=== PATIENT | female | born 1965 | race Caucasian/White ===

== ENCOUNTER 2021-10-25 12:46 | Inpatient (IN) ==
[2021-10-25] MEDS ORDERED: Azithromycin 500 mg/250 ml NS 500 MG/250 ML BAG IVPB ONE (13:19)
[2021-10-25] MEDS ORDERED: cefTRIAXone 1 gm/50 mL NS BAG 1 GM/50 ML BAG IV ONE (13:19)
[2021-10-25 14:00] LABS: ABS Lymphocytes 0.7 10^3/ul (1.0-4.8); ABS Monocytes 0.3 10^3/ul (0-0.8); ABS Neutrophils 3.4 10^3/ul (1.5-7.7); Eosinophil % 0.1 %; Hematocrit 35 % (35-47); Hemoglobin 11.4 g/dL (12.0-16.0); Lymphocyte % 16.6 %; Mean Corpuscular HGB Conc 33 g/dL (31-36); Mean Corpuscular Hemoglobin 26 pg (27-31); Mean Corpuscular Volume 79 fL (80-97); Mean Platelet Volume 6.8 fL (7.4-10.4); Platelet Count 207 10^3/uL (150-450); Red Cell Distribution Width 16 % (10-15); White Blood Count 4.4 10^3/uL (3.5-10.8)
[2021-10-25 14:09] LABS: Activated Partial Thrombo Time 30.9 seconds (26.0-38.0); INR 1.13 (0.86-1.15)
[2021-10-25 14:16] LABS: Albumin 3.3 g/dL (3.2-5.2); Albumin/Globulin Ratio 0.8 (1-3); Calcium 8.3 mg/dL (8.6-10.3); Globulin 3.9 g/dL (2-4); Potassium 3.8 mmol/L (3.5-5.0); Total Bilirubin 0.4 mg/dL (0.2-1.0); Total Protein 7.2 g/dL (6.4-8.9); eGFR CKD-EPI 61.7 (>60)
[2021-10-25 14:23] LABS: HCG Pregnancy 0.84 mIU/mL
[2021-10-25 14:36] LABS: TSH Ultra Thyroid Stim Horm 2.51 mcIU/mL (0.34-5.60)
[2021-10-25] MEDS ORDERED: Dexamethasone IV 4 MG/ML VIAL 1 ml VIAL IV SLOW PU ONE (14:55)
[2021-10-25 14:56] LABS: Urine Appearance Cloudy; Urine Bilirubin Negative (Negative); Urine Blood 3+ (Negative); Urine Color Yellow; Urine Glucose Negative (Negative); Urine Ketones Negative (Negative); Urine Nitrite Negative (Negative); Urine Protein 2+(100 mg/dL) (Negative); Urine Specific Gravity 1.016 (1.002-1.030); Urine Urobilinogen Negative (Negative)
[2021-10-25 15:04] LABS: Urine Bacteria 1+ (Absent); Urine Red Blood Cell 3+(>10/hpf) (Absent); Urine Squamous Epithelial Cell Present (Absent); Urine White Blood Cell Trace(0-5/hpf) (Absent)
[2021-10-25] MEDS ORDERED: Enoxaparin 40 MG/0.4 ML SYR SUBCUT SCH (16:00)
[2021-10-25] MEDS ORDERED: Remdesivir 100 mg Vial 200 MG in NS 0.9% 250 ml 210 ML IV ONE (16:00)
[2021-10-25] MEDS ORDERED: Ondansetron 4 mg VIAL 2 MG/ML 2 ml VIAL IV PRN (16:19)
[2021-10-25] MEDS ORDERED: Ondansetron 4 mg VIAL 2 MG/ML 2 ml VIAL IV ONE (16:19)
[2021-10-25 16:26] LABS: Ferritin 168.2 ng/mL (11-307)
[2021-10-25 16:30] LABS: Folate 13.27 ng/mL (5.90-24.80)
[2021-10-25] MEDS: guaiFENesin 100 mg/5 ml LIQ unit dose cup PO PRN (18:01)
[2021-10-25 21:01] LABS: Hematocrit 33 % (35-47); Hemoglobin 10.8 g/dL (12.0-16.0)
[2021-10-26 07:59] LABS: INR 1.14 (0.86-1.15)
[2021-10-26 08:15] LABS: Albumin 3.1 g/dL (3.2-5.2); Albumin/Globulin Ratio 0.8 (1-3); C Reactive Protein 128.88 mg/L (<8.01); Calcium 8.2 mg/dL (8.6-10.3); Globulin 3.8 g/dL (2-4); Potassium 4.4 mmol/L (3.5-5.0); Total Bilirubin 0.3 mg/dL (0.2-1.0); Total Protein 6.9 g/dL (6.4-8.9)
[2021-10-26 08:26] LABS: ABS Lymphocytes 0.7 10^3/ul (1.0-4.8); ABS Monocytes 0.3 10^3/ul (0-0.8); ABS Neutrophils 3.1 10^3/ul (1.5-7.7); Hematocrit 34 % (35-47); Hemoglobin 11.1 g/dL (12.0-16.0); Lymphocyte % 15.8 %; Mean Corpuscular HGB Conc 32 g/dL (31-36); Mean Corpuscular Hemoglobin 26 pg (27-31); Mean Corpuscular Volume 80 fL (80-97); Mean Platelet Volume 7.1 fL (7.4-10.4); Nucleated Red Blood Cells % 0.1; Platelet Count 220 10^3/uL (150-450); Red Cell Distribution Width 17 % (10-15); White Blood Count 4.2 10^3/uL (3.5-10.8)
[2021-10-26] MEDS: guaiFENesin 100 mg/5 ml LIQ unit dose cup PO PRN (08:26)
[2021-10-26] MEDS ORDERED: Cholecalciferol (VIT D3) 1,000 unit TAB PO SCH (09:00)
[2021-10-26] MEDS: SPIRIVA Respimat (tiotropium) 2.5 mcg/inh Inhaler INH SCH ×2 (10:56→15:06)
[2021-10-26] MEDS: Albuterol HFA INHALER 8 gm MDI INH PRN (15:06)
[2021-10-26] MEDS: guaiFENesin/CODIENE 100mg/10mg 5 ML UDC PO PRN ×2 (17:07→20:23)
[2021-10-26] MEDS: Remdesivir 100 mg Vial 100 MG in NS 0.9% 250 ml 230 ML IV SCH (20:28)
[2021-10-27] MEDS: guaiFENesin/CODIENE 100mg/10mg 5 ML UDC PO PRN ×4 (05:24→21:16)
[2021-10-27] MEDS: Albuterol HFA INHALER 8 gm MDI INH PRN (05:26)
[2021-10-27 06:19] LABS: PCO2 Arterial 52 mmHg (35-45)
[2021-10-27 06:21] LABS: PO2 Arterial 55 mmHg (80-100)
[2021-10-27] MEDS: SPIRIVA Respimat (tiotropium) 2.5 mcg/inh Inhaler INH SCH (07:04)
[2021-10-27 11:58] LABS: ABS Lymphocytes 0.6 10^3/ul (1.0-4.8); ABS Monocytes 0.4 10^3/ul (0-0.8); ABS Neutrophils 5.5 10^3/ul (1.5-7.7); Hematocrit 33 % (35-47); Hemoglobin 10.9 g/dL (12.0-16.0); Lymphocyte % 9.5 %; Mean Corpuscular HGB Conc 33 g/dL (31-36); Mean Corpuscular Hemoglobin 26 pg (27-31); Mean Corpuscular Volume 79 fL (80-97); Mean Platelet Volume 6.7 fL (7.4-10.4); Platelet Count 227 10^3/uL (150-450); Red Blood Count 4.19 10^6 /uL (3.70-4.87); Red Cell Distribution Width 16 % (10-15); White Blood Count 6.6 10^3/uL (3.5-10.8)
[2021-10-27 12:08] LABS: INR 1.13 (0.86-1.15)
[2021-10-27 12:16] LABS: Albumin 3.1 g/dL (3.2-5.2); Albumin/Globulin Ratio 0.9 (1-3); Calcium 8.5 mg/dL (8.6-10.3); Globulin 3.6 g/dL (2-4); Potassium 4.2 mmol/L (3.5-5.0); Total Bilirubin 0.3 mg/dL (0.2-1.0); Total Protein 6.7 g/dL (6.4-8.9)
[2021-10-27] MEDS: cefTRIAXone 1 gm/50 mL NS BAG 1 GM/50 ML BAG IVPB SCH (13:46)
[2021-10-27] MEDS: CMCS: Baricitinib 2 MG TAB (NF) PO SCH (13:53)
[2021-10-27 13:54] LABS: Chlamydia trachomatis NAA Negative (Negative); Neisseria gonorrhoeae (GC) NAA Negative (Negative)
[2021-10-27] MEDS: Azithromycin 500 mg/250 ml NS 500 MG/250 ML BAG IVPB SCH (15:20)
[2021-10-27] MEDS: Albuterol HFA INHALER 8 gm MDI INH SCH ×2 (15:43→21:38)
[2021-10-27] MEDS ORDERED: Lorazepam PYXIS KEY PRN (16:07)
[2021-10-27] MEDS ORDERED: Lorazepam PYXIS KEY ONE (16:08)
[2021-10-27] MEDS ORDERED: LORazepam 2 mg VIAL 1 ml ONE (16:08)
[2021-10-27] MEDS: LORazepam 2 mg VIAL 1 ml IV PUSH PRN (16:10)
[2021-10-27] MEDS ORDERED: Furosemide 40 mg/4 ml IV VIAL IV SLOW PU ONE (16:32)
[2021-10-27] MEDS: methylPREDNISolone SOD 40 mg/ml 1 ml VIAL IV SCH (17:18)
[2021-10-27 18:53] LABS: Urine Appearance Clear; Urine Bilirubin Negative (Negative); Urine Blood Negative (Negative); Urine Color Yellow; Urine Glucose Negative (Negative); Urine Ketones Negative (Negative); Urine Nitrite Negative (Negative); Urine Protein Negative (Negative); Urine Specific Gravity 1.015 (1.002-1.030); Urine Urobilinogen Negative (Negative)
[2021-10-27] MEDS: Remdesivir 100 mg Vial 100 MG in NS 0.9% 250 ml 230 ML IV SCH (20:19)
[2021-10-27] MEDS: LORazepam 2 mg VIAL 1 ml IV PUSH SCH (20:57)
[2021-10-27 23:13] LABS: Hematocrit 33 % (35-47); Hemoglobin 10.6 g/dL (12.0-16.0)
[2021-10-28] MEDS: Albuterol HFA INHALER 8 gm MDI INH SCH ×7 (00:43→23:19)
[2021-10-28] MEDS: methylPREDNISolone SOD 40 mg/ml 1 ml VIAL IV SCH ×3 (02:09→17:54)
[2021-10-28] MEDS: LORazepam 2 mg VIAL 1 ml IV PUSH PRN ×3 (02:19→20:08)
[2021-10-28] MEDS: guaiFENesin/CODIENE 100mg/10mg 5 ML UDC PO PRN ×3 (02:44→20:08)
[2021-10-28 03:51] LABS: PCO2 Arterial 47 mmHg (35-45); PO2 Arterial 170 mmHg (80-100)
[2021-10-28 04:20] LABS: ABS Monocytes 0.3 10^3/ul (0-0.8); ABS Neutrophils 2.6 10^3/ul (1.5-7.7); Hematocrit 31 % (35-47); Hemoglobin 10.4 g/dL (12.0-16.0); Lymphocyte % 24.7 %; Mean Corpuscular HGB Conc 33 g/dL (31-36); Mean Corpuscular Hemoglobin 26 pg (27-31); Mean Corpuscular Volume 79 fL (80-97); Mean Platelet Volume 6.9 fL (7.4-10.4); Nucleated Red Blood Cells % 0.1; Platelet Count 264 10^3/uL (150-450); Red Blood Count 3.95 10^6 /uL (3.70-4.87); Red Cell Distribution Width 16 % (10-15); White Blood Count 3.9 10^3/uL (3.5-10.8)
[2021-10-28 04:26] LABS: INR 1.16 (0.86-1.15)
[2021-10-28 04:36] LABS: Albumin/Globulin Ratio 0.8 (1-3); Calcium 8.3 mg/dL (8.6-10.3); Globulin 3.7 g/dL (2-4); Potassium 4.5 mmol/L (3.5-5.0); Total Bilirubin 0.3 mg/dL (0.2-1.0); Total Protein 6.7 g/dL (6.4-8.9)
[2021-10-28] MEDS: SPIRIVA Respimat (tiotropium) 2.5 mcg/inh Inhaler INH SCH ×2 (08:10→11:21)
[2021-10-28] MEDS: LORazepam 2 mg VIAL 1 ml IV PUSH SCH (08:19)
[2021-10-28 08:34] LABS: Magnesium 2.3 mg/dL (1.9-2.7); Phosphorus 4.1 mg/dL (2.5-5.0)
[2021-10-28] MEDS: cefTRIAXone 1 gm/50 mL NS BAG 1 GM/50 ML BAG IVPB SCH (11:03)
[2021-10-28] MEDS: Albuterol/Ipratropium NEB.SOL (2.5/0.5 MG) 3 ML NEB.SOLN INH PRN (11:24)
[2021-10-28] MEDS ORDERED: Morphine 2 MG/ML SYRINGE ONE (11:25)
[2021-10-28] MEDS: Azithromycin 500 mg/250 ml NS 500 MG/250 ML BAG IVPB SCH (11:57)
[2021-10-28] MEDS: CMCS: Baricitinib 2 MG TAB (NF) PO SCH (12:00)
[2021-10-28] MEDS ORDERED: Morphine 2 MG/ML SYRINGE IV ONE (12:46)
[2021-10-28] MEDS ORDERED: Morphine 2 MG/ML SYRINGE IV PRN (12:46)
[2021-10-28 16:16] LABS: % Iron Saturation 5 % (14 - 50); Total Iron Binding Capacity 315 mcg/dL (250 - 400)
[2021-10-28] MEDS ORDERED: LORazepam 2 mg VIAL 1 ml IV PUSH PRN (19:57)
[2021-10-28] MEDS: hydrALAZINE 20 mg/ml 1 ML Vial IV IV SLOW PU PRN (20:19)
[2021-10-28] MEDS: Remdesivir 100 mg Vial 100 MG in NS 0.9% 250 ml 230 ML IV SCH (20:26)
[2021-10-28] MEDS ORDERED: Furosemide 40 mg/4 ml IV VIAL IV SLOW PU ONE (20:40)
[2021-10-29] MEDS: methylPREDNISolone SOD 40 mg/ml 1 ml VIAL IV SCH ×3 (00:15→20:47)
[2021-10-29] MEDS: Albuterol HFA INHALER 8 gm MDI INH SCH ×6 (03:11→23:08)
[2021-10-29] MEDS: hydrALAZINE 20 mg/ml 1 ML Vial IV IV SLOW PU PRN (03:36)
[2021-10-29] MEDS: LORazepam 2 mg VIAL 1 ml IV PUSH PRN ×3 (03:45→20:48)
[2021-10-29 04:26] LABS: ABS Lymphocytes 0.9 10^3/ul (1.0-4.8); ABS Monocytes 0.4 10^3/ul (0-0.8); ABS Neutrophils 4.5 10^3/ul (1.5-7.7); Hematocrit 34 % (35-47); Lymphocyte % 15.6 %; Mean Corpuscular HGB Conc 33 g/dL (31-36); Mean Corpuscular Hemoglobin 26 pg (27-31); Mean Corpuscular Volume 79 fL (80-97); Mean Platelet Volume 6.4 fL (7.4-10.4); Platelet Count 250 10^3/uL (150-450); Red Blood Count 4.28 10^6 /uL (3.70-4.87); Red Cell Distribution Width 16 % (10-15); White Blood Count 5.8 10^3/uL (3.5-10.8)
[2021-10-29 04:30] LABS: INR 1.16 (0.86-1.15)
[2021-10-29 04:42] LABS: Albumin 3.1 g/dL (3.2-5.2); Albumin/Globulin Ratio 0.8 (1-3); Calcium 8.6 mg/dL (8.6-10.3); Globulin 3.7 g/dL (2-4); Potassium 4.4 mmol/L (3.5-5.0); Total Bilirubin 0.3 mg/dL (0.2-1.0); Total Protein 6.8 g/dL (6.4-8.9); eGFR CKD-EPI 87.5 (>60)
[2021-10-29] MEDS: SPIRIVA Respimat (tiotropium) 2.5 mcg/inh Inhaler INH SCH (07:51)
[2021-10-29] MEDS: cefTRIAXone 1 gm/50 mL NS BAG 1 GM/50 ML BAG IVPB SCH (12:41)
[2021-10-29] MEDS: Azithromycin 500 mg/250 ml NS 500 MG/250 ML BAG IVPB SCH (12:41)
[2021-10-29] MEDS: CMCS: Baricitinib 2 MG TAB (NF) PO SCH (12:42)
[2021-10-29] MEDS ORDERED: Furosemide 40 mg/4 ml IV VIAL IV SLOW PU ONE (15:27)
[2021-10-29] MEDS: Remdesivir 100 mg Vial 100 MG in NS 0.9% 250 ml 230 ML IV SCH (21:58)
[2021-10-30] MEDS: Albuterol/Ipratropium NEB.SOL (2.5/0.5 MG) 3 ML NEB.SOLN INH PRN ×2 (02:58→18:10)
[2021-10-30] MEDS: Albuterol HFA INHALER 8 gm MDI INH SCH ×2 (02:59→10:35)
[2021-10-30] MEDS: hydrALAZINE 20 mg/ml 1 ML Vial IV IV SLOW PU PRN (03:09)
[2021-10-30 04:37] LABS: ABS Lymphocytes 0.9 10^3/ul (1.0-4.8); ABS Monocytes 0.5 10^3/ul (0-0.8); ABS Neutrophils 5.8 10^3/ul (1.5-7.7); Eosinophil % 0.1 %; Hematocrit 35 % (35-47); Hemoglobin 11.2 g/dL (12.0-16.0); Lymphocyte % 12.1 %; Mean Corpuscular HGB Conc 32 g/dL (31-36); Mean Corpuscular Hemoglobin 26 pg (27-31); Mean Corpuscular Volume 79 fL (80-97); Mean Platelet Volume 6.5 fL (7.4-10.4); Platelet Count 272 10^3/uL (150-450); Red Blood Count 4.35 10^6 /uL (3.70-4.87); Red Cell Distribution Width 16 % (10-15); White Blood Count 7.2 10^3/uL (3.5-10.8)
[2021-10-30 04:44] LABS: INR 1.16 (0.86-1.15)
[2021-10-30 05:04] LABS: Albumin 3.2 g/dL (3.2-5.2); Albumin/Globulin Ratio 0.8 (1-3); Calcium 8.8 mg/dL (8.6-10.3); Globulin 3.8 g/dL (2-4); Potassium 4.1 mmol/L (3.5-5.0); Total Bilirubin 0.4 mg/dL (0.2-1.0); eGFR CKD-EPI 84.9 (>60)
[2021-10-30] MEDS: methylPREDNISolone SOD 40 mg/ml 1 ml VIAL IV SCH ×2 (09:22→19:54)
[2021-10-30] MEDS: LORazepam 2 mg VIAL 1 ml IV PUSH PRN ×3 (09:47→17:46)
[2021-10-30] MEDS: guaiFENesin/CODIENE 100mg/10mg 5 ML UDC PO PRN (10:18)
[2021-10-30] MEDS: SPIRIVA Respimat (tiotropium) 2.5 mcg/inh Inhaler INH SCH (10:35)
[2021-10-30] MEDS: cefTRIAXone 1 gm/50 mL NS BAG 1 GM/50 ML BAG IVPB SCH (11:30)
[2021-10-30] MEDS: Azithromycin 500 mg/250 ml NS 500 MG/250 ML BAG IVPB SCH (12:35)
[2021-10-30] MEDS: CMCS: Baricitinib 2 MG TAB (NF) PO SCH (12:54)
[2021-10-31 04:07] LABS: ABS Lymphocytes 0.7 10^3/ul (1.0-4.8); ABS Monocytes 0.5 10^3/ul (0-0.8); ABS Neutrophils 8.2 10^3/ul (1.5-7.7); Eosinophil % 0.1 %; Hematocrit 34 % (35-47); Hemoglobin 10.7 g/dL (12.0-16.0); Lymphocyte % 7.8 %; Mean Corpuscular HGB Conc 32 g/dL (31-36); Mean Corpuscular Hemoglobin 25 pg (27-31); Mean Corpuscular Volume 79 fL (80-97); Mean Platelet Volume 6.4 fL (7.4-10.4); Platelet Count 232 10^3/uL (150-450); Red Blood Count 4.26 10^6 /uL (3.70-4.87); Red Cell Distribution Width 16 % (10-15); White Blood Count 9.5 10^3/uL (3.5-10.8)
[2021-10-31 04:23] LABS: Calcium 8.8 mg/dL (8.6-10.3); Magnesium 2.6 mg/dL (1.9-2.7); Phosphorus 3.4 mg/dL (2.5-5.0); Potassium 4.4 mmol/L (3.5-5.0); eGFR CKD-EPI 102.1 (>60)
[2021-10-31] MEDS ORDERED: methylPREDNISolone SOD 40 mg/ml 1 ml VIAL IV SCH (09:00)
[2021-10-31] MEDS: LORazepam 2 mg VIAL 1 ml IV PUSH PRN ×2 (10:08→19:00)
[2021-10-31] MEDS: cefTRIAXone 1 gm/50 mL NS BAG 1 GM/50 ML BAG IVPB SCH (12:23)
[2021-10-31] MEDS: CMCS: Baricitinib 2 MG TAB (NF) PO SCH (12:23)
[2021-10-31] MEDS: Heparin 5000 UNITS/ML 1 mL VIAL SUBCUT SCH (21:53)
[2021-11-01] MEDS: LORazepam 2 mg VIAL 1 ml IV PUSH PRN ×2 (05:33→16:26)
[2021-11-01 08:28] LABS: Troponin I 0.05 ng/mL (<0.03)
[2021-11-01] MEDS: Heparin 5000 UNITS/ML 1 mL VIAL SUBCUT SCH ×2 (09:42→21:35)
[2021-11-01] MEDS: CMCS: Baricitinib 2 MG TAB (NF) PO SCH (12:02)
[2021-11-01 12:36] LABS: Troponin I 0.04 ng/mL (<0.03)
[2021-11-02] MEDS: LORazepam 2 mg VIAL 1 ml IV PUSH PRN ×3 (08:10→22:54)
[2021-11-02] MEDS: Heparin 5000 UNITS/ML 1 mL VIAL SUBCUT SCH ×2 (09:50→22:04)
[2021-11-02] MEDS: CMCS: Baricitinib 2 MG TAB (NF) PO SCH (09:51)
[2021-11-02] MEDS ORDERED: Piperacillin/Tazobac ADVAN 3.375 GM in NS 0.9% 100 ml BAG 100 ML IV ONE (12:02)
[2021-11-02] MEDS ORDERED: Zosyn per Pharmacy NOTE FOLLOW UP SCH (13:00)
[2021-11-02] MEDS ORDERED: Acetaminophen IV 1 GM/100ML VI 100 ML IV ONE ×2 (16:30→17:40)
[2021-11-02] MEDS ORDERED: TPN 24 HR with D10W 1000 ml BAG 1,000 ML, Amino Acid Infusion 10% 850 ML, Sterile Water... IV SCH (17:00)
[2021-11-02] MEDS: ZOSYN 3.375 GM Q8H per EXTENDED INFUSION IV SCH (17:21)
[2021-11-02] MEDS: Acetaminophen IV 1 GM/100ML VI 100 ML IV PRN (17:41)
[2021-11-02] MEDS ORDERED: Succinylcholine 200 mg VIAL 20 mg/ml 10 ml VIAL (200 mg) ONE (20:54)
[2021-11-02] MEDS ORDERED: Rocuronium 50 mg VIAL 10 mg/ml 5 ml VIAL (50 mg) ONE (20:55)
[2021-11-02] MEDS ORDERED: Dexamethasone IV 4 MG/ML VIAL 1 ml VIAL IV SLOW PU SCH (21:00)
[2021-11-02 23:16] LABS: PCO2 Arterial 55 mmHg (35-45)
[2021-11-02 23:20] LABS: PO2 Arterial 50 mmHg (80-100)
[2021-11-03] MEDS ORDERED: Rocuronium 50 mg VIAL 10 mg/ml 5 ml VIAL (50 mg) ONE (00:03)
[2021-11-03] MEDS ORDERED: Midazolam 10 mg/10 ml VIAL 1 mg/ml 10 ml VIAL (10 mg) ONE (00:10)
[2021-11-03] MEDS: Propofol 10 mg/ml 100 ML BTL 100 ML IV SCH ×5 (00:20→07:32)
[2021-11-03] MEDS ORDERED: Propofol 10 mg/ml 100 ML BTL 100 ML ONE (00:20)
[2021-11-03] MEDS: Acetaminophen IV 1 GM/100ML VI 100 ML IV PRN (01:43)
[2021-11-03] MEDS: ZOSYN 3.375 GM Q8H per EXTENDED INFUSION IV SCH ×3 (02:10→17:53)
[2021-11-03] MEDS: LORazepam 2 mg VIAL 1 ml IV PUSH PRN (02:45)
[2021-11-03 04:49] LABS: Hematocrit 35 % (35-47); Mean Corpuscular HGB Conc 31 g/dL (31-36); Mean Corpuscular Hemoglobin 25 pg (27-31); Mean Corpuscular Volume 81 fL (80-97); Mean Platelet Volume 7.1 fL (7.4-10.4); Platelet Count 210 10^3/uL (150-450); Red Blood Count 4.34 10^6 /uL (3.70-4.87); Red Cell Distribution Width 16 % (10-15); White Blood Count 18.3 10^3/uL (3.5-10.8)
[2021-11-03 05:04] LABS: Calcium 8.8 mg/dL (8.6-10.3); Magnesium 2.6 mg/dL (1.9-2.7); Phosphorus 5.9 mg/dL (2.5-5.0); eGFR CKD-EPI 44.4 (>60)
[2021-11-03 05:05] LABS: Potassium 5.1 mmol/L (3.5-5.0)
[2021-11-03] MEDS: Chlorhexidine MOUTHWASH 0.12% 15 ML UDC TOPICAL SCH ×5 (05:26→21:05)
[2021-11-03 08:08] LABS: PCO2 Arterial 64 mmHg (35-45); PO2 Arterial 125 mmHg (80-100)
[2021-11-03] MEDS: fentaNYL INFUSION 50 mcg/mL VL 2,500 MCG/50 ML VIAL IV SCH (09:21)
[2021-11-03 09:23] LABS: Myoglobin 191.4 ng/mL (14.3-65.8)
[2021-11-03] MEDS: Heparin 5000 UNITS/ML 1 mL VIAL SUBCUT SCH ×2 (09:33→21:05)
[2021-11-03] MEDS: methylPREDNISolone SOD 40 mg/ml 1 ml VIAL IV SCH ×2 (09:33→21:05)
[2021-11-03] MEDS: CMCS: Baricitinib 2 MG TAB (NF) PO SCH (09:34)
[2021-11-03 12:47] LABS: PCO2 Arterial 56 mmHg (35-45); PO2 Arterial 149 mmHg (80-100)
[2021-11-03 16:00] LABS: PCO2 Arterial 56 mmHg (35-45); PO2 Arterial 93 mmHg (80-100)
[2021-11-04] MEDS: ZOSYN 3.375 GM Q8H per EXTENDED INFUSION IV SCH ×3 (00:08→16:17)
[2021-11-04] MEDS: LORazepam 2 mg VIAL 1 ml IV PUSH PRN ×7 (03:21→21:13)
[2021-11-04] MEDS: Chlorhexidine MOUTHWASH 0.12% 15 ML UDC TOPICAL SCH ×6 (03:21→20:56)
[2021-11-04 03:35] LABS: Hematocrit 33 % (35-47); Hemoglobin 10.4 g/dL (12.0-16.0); Mean Corpuscular HGB Conc 31 g/dL (31-36); Mean Corpuscular Hemoglobin 25 pg (27-31); Mean Corpuscular Volume 80 fL (80-97); Platelet Count 297 10^3/uL (150-450); Red Blood Count 4.17 10^6 /uL (3.70-4.87); Red Cell Distribution Width 16 % (10-15); White Blood Count 12.1 10^3/uL (3.5-10.8)
[2021-11-04 03:51] LABS: Blood Urea Nitrogen 43 mg/dL (6-24); CO2 Carbon Dioxide 31 mmol/L (22-32); Calcium 8.5 mg/dL (8.6-10.3); Chloride 97 mmol/L (101-111); Glucose 208 mg/dL (70-100); Sodium 134 mmol/L (135-145); eGFR CKD-EPI 48.6 (>60)
[2021-11-04 04:01] LABS: ABS Lymphocytes 0.5 10^3/ul (1.0-4.8); ABS Monocytes 0.4 10^3/ul (0-0.8); ABS Neutrophils 11.1 10^3/ul (1.5-7.7); Lymphocyte % 3.9 %
[2021-11-04 04:06] LABS: Anion Gap 6 mmol/L (2-11)
[2021-11-04 04:43] LABS: Magnesium 2.8 mg/dL (1.9-2.7); Phosphorus 3.5 mg/dL (2.5-5.0); Potassium Redraw 4.4 mmol/L (3.5-5.0)
[2021-11-04] MEDS: fentaNYL INFUSION 50 mcg/mL VL 2,500 MCG/50 ML VIAL IV SCH (06:33)
[2021-11-04] MEDS: methylPREDNISolone SOD 40 mg/ml 1 ml VIAL IV SCH ×2 (08:22→20:56)
[2021-11-04] MEDS: CMCS: Baricitinib 2 MG TAB (NF) PO SCH (08:22)
[2021-11-04] MEDS: Heparin 5000 UNITS/ML 1 mL VIAL SUBCUT SCH ×2 (08:22→20:56)
[2021-11-04 08:33] LABS: PCO2 Arterial 48 mmHg (35-45); PO2 Arterial 88 mmHg (80-100)
[2021-11-04] MEDS: Dextran 70/Hypromellose Tears Eye Drops 15 ml BTL (for Artificials Tears) BOTH EYES PRN ×2 (09:35→13:27)
[2021-11-04] MEDS ORDERED: CMCS: Methylnaltrexone SQ (NF) 12 MG/0.6 ML VIAL SUBCUT ONE (10:26)
[2021-11-04 12:49] LABS: PCO2 Arterial 57 mmHg (35-45); PO2 Arterial 68 mmHg (80-100)
[2021-11-04] MEDS: CLONAZEPAM 1 MG PO SCH ×2 (13:18→20:56)
[2021-11-04] MEDS ORDERED: Dextrose 50% Syringe 50 ml 25 GM/50 ML SYRINGE IV PUSH PRN (16:28)
[2021-11-04] MEDS: hydrALAZINE 20 mg/ml 1 ML Vial IV IV SLOW PU PRN (17:18)
[2021-11-04 21:32] LABS: PCO2 Arterial 57 mmHg (35-45); PO2 Arterial 78 mmHg (80-100)
[2021-11-05] MEDS: Chlorhexidine MOUTHWASH 0.12% 15 ML UDC TOPICAL SCH ×6 (01:23→20:55)
[2021-11-05] MEDS: ZOSYN 3.375 GM Q8H per EXTENDED INFUSION IV SCH ×3 (01:31→17:50)
[2021-11-05] MEDS: fentaNYL INFUSION 50 mcg/mL VL 2,500 MCG/50 ML VIAL IV SCH ×2 (01:35→18:42)
[2021-11-05] MEDS: LORazepam 2 mg VIAL 1 ml IV PUSH PRN ×3 (02:40→12:13)
[2021-11-05] MEDS: Dextran 70/Hypromellose Tears Eye Drops 15 ml BTL (for Artificials Tears) BOTH EYES PRN (03:18)
[2021-11-05 07:01] LABS: ABS Lymphocytes 0.6 10^3/ul (1.0-4.8); ABS Monocytes 0.6 10^3/ul (0-0.8); ABS Neutrophils 9.8 10^3/ul (1.5-7.7); Hematocrit 31 % (35-47); Mean Corpuscular HGB Conc 32 g/dL (31-36); Mean Corpuscular Hemoglobin 26 pg (27-31); Mean Corpuscular Volume 80 fL (80-97); Mean Platelet Volume 7.7 fL (7.4-10.4); Platelet Count 287 10^3/uL (150-450); Red Cell Distribution Width 16 % (10-15)
[2021-11-05 07:12] LABS: Calcium 9.1 mg/dL (8.6-10.3); Phosphorus 3.9 mg/dL (2.5-5.0); Potassium 4.9 mmol/L (3.5-5.0); eGFR CKD-EPI 50.9 (>60)
[2021-11-05] MEDS: methylPREDNISolone SOD 40 mg/ml 1 ml VIAL IV SCH ×2 (07:54→21:00)
[2021-11-05] MEDS: Heparin 5000 UNITS/ML 1 mL VIAL SUBCUT SCH ×3 (07:54→23:14)
[2021-11-05] MEDS: Polyethylene Glycol 3350 17 GM PACKET PO SCH (07:54)
[2021-11-05 07:59] LABS: PCO2 Arterial 61 mmHg (35-45); PO2 Arterial 88 mmHg (80-100)
[2021-11-05] MEDS: Lansoprazole SUSP ORALSYR 3 MG/ML PO SCH (08:44)
[2021-11-05] MEDS: CLONAZEPAM 1 MG PO SCH ×2 (09:58→21:00)
[2021-11-05] MEDS ORDERED: fentaNYL 100 mcg/2 ml 50 MCG/ML VIAL ONE (12:34)
[2021-11-05] MEDS: Albuterol/Ipratropium NEB.SOL (2.5/0.5 MG) 3 ML NEB.SOLN INH PRN ×3 (12:51→14:18)
[2021-11-05] MEDS ORDERED: guaiFENesin/CODIENE 100mg/10mg 5 ML UDC PO PRN (13:20)
[2021-11-05] MEDS ORDERED: fentaNYL 100 mcg/2 ml 50 MCG/ML VIAL IV SLOW PU ONE (13:20)
[2021-11-05] MEDS ORDERED: Albuterol/Ipratropium NEB.SOL (2.5/0.5 MG) 3 ML NEB.SOLN ONE (13:23)
[2021-11-05] MEDS ORDERED: Rocuronium 50 mg VIAL 10 mg/ml 5 ml VIAL (50 mg) ONE (13:35)
[2021-11-05] MEDS: Midazolam 2 mg/2 ml VIAL 1 mg/ml 2 ml VIAL (2 mg) IV SLOW PU PRN ×4 (13:53→23:40)
[2021-11-05 14:34] LABS: PO2 Arterial 172 mmHg (80-100)
[2021-11-05 14:40] LABS: PCO2 Arterial 95 mmHg (35-45)
[2021-11-05 19:39] LABS: PCO2 Arterial 67 mmHg (35-45); PO2 Arterial 119 mmHg (80-100)
[2021-11-06] MEDS ORDERED: Midazolam 2 mg/2 ml VIAL 1 mg/ml 2 ml VIAL (2 mg) ONE (00:01)
[2021-11-06] MEDS ORDERED: Midazolam 2 mg/2 ml VIAL 1 mg/ml 2 ml VIAL (2 mg) IV SLOW PU ONE (00:10)
[2021-11-06 00:12] LABS: Hematocrit 31 % (35-47); Hemoglobin 10.1 g/dL (12.0-16.0); Mean Corpuscular HGB Conc 32 g/dL (31-36); Mean Corpuscular Hemoglobin 26 pg (27-31); Mean Corpuscular Volume 80 fL (80-97); Mean Platelet Volume 7.4 fL (7.4-10.4); Platelet Count 330 10^3/uL (150-450); Red Blood Count 3.92 10^6 /uL (3.70-4.87); Red Cell Distribution Width 16 % (10-15); White Blood Count 12.1 10^3/uL (3.5-10.8)
[2021-11-06 00:17] LABS: ABS Lymphocytes 0.6 10^3/ul (1.0-4.8); ABS Monocytes 0.6 10^3/ul (0-0.8); ABS Neutrophils 10.9 10^3/ul (1.5-7.7); Eosinophil % 0.2 %
[2021-11-06 00:19] LABS: INR 1.11 (0.86-1.15)
[2021-11-06] MEDS: ZOSYN 3.375 GM Q8H per EXTENDED INFUSION IV SCH ×3 (01:04→18:00)
[2021-11-06] MEDS: Chlorhexidine MOUTHWASH 0.12% 15 ML UDC TOPICAL SCH ×7 (02:53→20:22)
[2021-11-06 04:13] LABS: ABS Lymphocytes 0.5 10^3/ul (1.0-4.8); ABS Monocytes 0.7 10^3/ul (0-0.8); ABS Neutrophils 9.8 10^3/ul (1.5-7.7); Eosinophil % 0.1 %; Hematocrit 31 % (35-47); Hemoglobin 9.9 g/dL (12.0-16.0); Lymphocyte % 4.7 %; Mean Corpuscular HGB Conc 32 g/dL (31-36); Mean Corpuscular Hemoglobin 26 pg (27-31); Mean Corpuscular Volume 81 fL (80-97); Mean Platelet Volume 7.7 fL (7.4-10.4); Platelet Count 280 10^3/uL (150-450); Red Blood Count 3.84 10^6 /uL (3.70-4.87); Red Cell Distribution Width 16 % (10-15); White Blood Count 11.1 10^3/uL (3.5-10.8)
[2021-11-06 04:32] LABS: Calcium 9.4 mg/dL (8.6-10.3); Phosphorus 4.3 mg/dL (2.5-5.0); Potassium 5.3 mmol/L (3.5-5.0); eGFR CKD-EPI 48.1 (>60)
[2021-11-06] MEDS: Midazolam 2 mg/2 ml VIAL 1 mg/ml 2 ml VIAL (2 mg) IV SLOW PU PRN ×3 (08:35→18:14)
[2021-11-06] MEDS: methylPREDNISolone SOD 40 mg/ml 1 ml VIAL IV SCH ×2 (08:35→20:23)
[2021-11-06] MEDS: Heparin 5000 UNITS/ML 1 mL VIAL SUBCUT SCH ×2 (08:37→20:22)
[2021-11-06] MEDS: Lansoprazole SUSP ORALSYR 3 MG/ML PO SCH (08:40)
[2021-11-06] MEDS: Polyethylene Glycol 3350 17 GM PACKET PO SCH (08:41)
[2021-11-06] MEDS: CLONAZEPAM 1 MG PO SCH (08:41)
[2021-11-06] MEDS ORDERED: SODIUM ZIRCONIUM CYCLOSILICATE 10 GM PACKET PO ONE (09:16)
[2021-11-06 09:41] LABS: PCO2 Arterial 66 mmHg (35-45); PO2 Arterial 105 mmHg (80-100)
[2021-11-06 09:58] LABS: Myoglobin 114.2 ng/mL (14.3-65.8)
[2021-11-06] MEDS: fentaNYL INFUSION 50 mcg/mL VL 2,500 MCG/50 ML VIAL IV SCH (12:03)
[2021-11-06] MEDS: hydrALAZINE 20 mg/ml 1 ML Vial IV IV SLOW PU PRN ×2 (14:37→20:21)
[2021-11-06] MEDS: Midazolam 50 MG VIAL IV DRIP 50 ML IV SCH (20:34)
[2021-11-06] MEDS: niCARdipine 0.1MG/ML IVPREMIX 20 MG/200 ML BAG IV SCH ×2 (22:12→23:58)
[2021-11-07] MEDS: ZOSYN 3.375 GM Q8H per EXTENDED INFUSION IV SCH ×3 (00:07→16:31)
[2021-11-07] MEDS: fentaNYL INFUSION 50 mcg/mL VL 2,500 MCG/50 ML VIAL IV SCH ×2 (00:14→17:21)
[2021-11-07 01:22] LABS: Calcium 9.1 mg/dL (8.6-10.3); eGFR CKD-EPI 59.3 (>60)
[2021-11-07 01:46] LABS: Potassium 5.1 mmol/L (3.5-5.0)
[2021-11-07] MEDS: Chlorhexidine MOUTHWASH 0.12% 15 ML UDC TOPICAL SCH ×6 (02:06→20:59)
[2021-11-07] MEDS: niCARdipine 0.1MG/ML IVPREMIX 20 MG/200 ML BAG IV SCH (02:36)
[2021-11-07 04:21] LABS: ABS Lymphocytes 0.5 10^3/ul (1.0-4.8); ABS Monocytes 0.7 10^3/ul (0-0.8); ABS Neutrophils 10.9 10^3/ul (1.5-7.7); Eosinophil % 0.1 %; Hematocrit 30 % (35-47); Hemoglobin 9.5 g/dL (12.0-16.0); Mean Corpuscular HGB Conc 31 g/dL (31-36); Mean Corpuscular Hemoglobin 25 pg (27-31); Mean Corpuscular Volume 80 fL (80-97); Mean Platelet Volume 7.3 fL (7.4-10.4); Nucleated Red Blood Cells % 0.1; Platelet Count 289 10^3/uL (150-450); Red Blood Count 3.78 10^6 /uL (3.70-4.87); Red Cell Distribution Width 16 % (10-15); White Blood Count 12.1 10^3/uL (3.5-10.8)
[2021-11-07 04:40] LABS: Albumin 2.9 g/dL (3.2-5.2); Albumin/Globulin Ratio 0.9 (1-3); Calcium 9.3 mg/dL (8.6-10.3); Globulin 3.2 g/dL (2-4); Magnesium 2.9 mg/dL (1.9-2.7); Phosphorus 3.6 mg/dL (2.5-5.0); Total Bilirubin 0.4 mg/dL (0.2-1.0); Total Protein 6.1 g/dL (6.4-8.9); eGFR CKD-EPI 61.3 (>60)
[2021-11-07 04:48] LABS: Potassium 5.5 mmol/L (3.5-5.0)
[2021-11-07] MEDS ORDERED: Furosemide 40 mg/4 ml IV VIAL IV SLOW PU ONE (04:53)
[2021-11-07] MEDS ORDERED: SODIUM ZIRCONIUM CYCLOSILICATE 10 GM PACKET PO SCH (06:00)
[2021-11-07] MEDS: Heparin 5000 UNITS/ML 1 mL VIAL SUBCUT SCH ×2 (08:38→20:59)
[2021-11-07] MEDS: methylPREDNISolone SOD 40 mg/ml 1 ml VIAL IV SCH ×2 (08:39→20:59)
[2021-11-07] MEDS: Polyethylene Glycol 3350 17 GM PACKET PO SCH (08:39)
[2021-11-07] MEDS ORDERED: SODIUM ZIRCONIUM CYCLOSILICATE 10 GM PACKET PO ONE (09:10)
[2021-11-07] MEDS ORDERED: CMCS:Methylnaltrexone SQ (NF) 12 MG/0.6 ML VIAL SUBCUT ONE (09:30)
[2021-11-07 10:00] LABS: PCO2 Arterial 56 mmHg (35-45); PO2 Arterial 72 mmHg (80-100)
[2021-11-07] MEDS ORDERED: CMCS:Lubiprostone 24 MCG CAP (NF) PO SCH (10:00)
[2021-11-07] MEDS: Lactulose 30 ml UDC PO SCH ×3 (10:52→20:59)
[2021-11-07] MEDS: Lansoprazole SUSP ORALSYR 3 MG/ML PO SCH (11:21)
[2021-11-07] MEDS: Midazolam 50 MG VIAL IV DRIP 50 ML IV SCH (14:33)
[2021-11-07 23:55] LABS: Calcium 9.1 mg/dL (8.6-10.3)
[2021-11-08] MEDS ORDERED: Dextrose 50% Syringe 50 ml 25 GM/50 ML SYRINGE IV PUSH ONE ×3 (01:07→12:27)
[2021-11-08] MEDS: ZOSYN 3.375 GM Q8H per EXTENDED INFUSION IV SCH ×3 (01:32→15:01)
[2021-11-08] MEDS: Chlorhexidine MOUTHWASH 0.12% 15 ML UDC TOPICAL SCH ×6 (01:33→22:53)
[2021-11-08] MEDS: Midazolam 50 MG VIAL IV DRIP 50 ML IV SCH ×3 (01:57→21:07)
[2021-11-08 05:58] LABS: ABS Lymphocytes 0.3 10^3/ul (1.0-4.8); ABS Monocytes 0.4 10^3/ul (0-0.8); ABS Neutrophils 7.3 10^3/ul (1.5-7.7); Eosinophil % 0.2 %; Hematocrit 21 % (35-47); Hemoglobin 6.4 g/dL (12.0-16.0); Mean Corpuscular HGB Conc 31 g/dL (31-36); Mean Corpuscular Hemoglobin 26 pg (27-31); Mean Corpuscular Volume 84 fL (80-97); Mean Platelet Volume 7.5 fL (7.4-10.4); Platelet Count 200 10^3/uL (150-450); Red Blood Count 2.45 10^6 /uL (3.70-4.87); Red Cell Distribution Width 17 % (10-15); White Blood Count 8.1 10^3/uL (3.5-10.8)
[2021-11-08 06:45] LABS: Albumin 1.8 g/dL (3.2-5.2); Magnesium 1.6 mg/dL (1.9-2.7); Potassium 3.8 mmol/L (3.5-5.0); Total Bilirubin 0.3 mg/dL (0.2-1.0)
[2021-11-08 06:49] LABS: Calcium 9.2 mg/dL (8.6-10.3); eGFR CKD-EPI 61.3 (>60)
[2021-11-08 06:51] LABS: Albumin/Globulin Ratio 1.1 (1-3); Globulin 1.7 g/dL (2-4); Phosphorus 2.4 mg/dL (2.5-5.0); Total Protein 3.5 g/dL (6.4-8.9); eGFR CKD-EPI 104.7 (>60)
[2021-11-08 07:02] LABS: Potassium 6.1 mmol/L (3.5-5.0)
[2021-11-08 07:02] LABS: Calcium 9.3 mg/dL (8.6-10.3); Magnesium 2.6 mg/dL (1.9-2.7); Phosphorus 3.7 mg/dL (2.5-5.0); eGFR CKD-EPI 60.7 (>60)
[2021-11-08 07:03] LABS: Potassium 6.2 mmol/L (3.5-5.0)
[2021-11-08 07:03] LABS: ABS Lymphocytes 0.6 10^3/ul (1.0-4.8); ABS Monocytes 0.7 10^3/ul (0-0.8); ABS Neutrophils 10.9 10^3/ul (1.5-7.7); Eosinophil % 0.2 %; Hematocrit 29 % (35-47); Hemoglobin 9.3 g/dL (12.0-16.0); Lymphocyte % 4.6 %; Mean Corpuscular HGB Conc 33 g/dL (31-36); Mean Corpuscular Hemoglobin 26 pg (27-31); Mean Corpuscular Volume 80 fL (80-97); Mean Platelet Volume 7.8 fL (7.4-10.4); Platelet Count 290 10^3/uL (150-450); Red Blood Count 3.58 10^6 /uL (3.70-4.87); Red Cell Distribution Width 16 % (10-15); White Blood Count 12.2 10^3/uL (3.5-10.8)
[2021-11-08] MEDS ORDERED: Patiromer POWDER 8.4 GM PAK PO ONE (07:11)
[2021-11-08 07:22] LABS: Calcium 8.2 mg/dL (8.6-10.3)
[2021-11-08] MEDS: Heparin 5000 UNITS/ML 1 mL VIAL SUBCUT SCH (07:36)
[2021-11-08] MEDS: methylPREDNISolone SOD 40 mg/ml 1 ml VIAL IV SCH ×2 (07:36→22:53)
[2021-11-08] MEDS: Polyethylene Glycol 3350 17 GM PACKET PO SCH (07:36)
[2021-11-08] MEDS: Lansoprazole SUSP ORALSYR 3 MG/ML PO SCH (07:36)
[2021-11-08] MEDS: Lactulose 30 ml UDC PO SCH ×2 (07:36→12:12)
[2021-11-08] MEDS: Albuterol/Ipratropium NEB.SOL (2.5/0.5 MG) 3 ML NEB.SOLN INH PRN (08:06)
[2021-11-08] MEDS ORDERED: Magnesium CITRATE LIQ 300 ML BTL PO ONE (08:19)
[2021-11-08] MEDS ORDERED: Furosemide 40 mg/4 ml IV VIAL IV ONE (08:19)
[2021-11-08] MEDS ORDERED: Senna TAB 8.6 mg TAB PO SCH (09:00)
[2021-11-08 09:08] LABS: PCO2 Arterial 56 mmHg (35-45); PO2 Arterial 106 mmHg (80-100)
[2021-11-08] MEDS: Magnesium Hydroxide LIQ 30 ML UDC PO SCH ×2 (09:13→12:12)
[2021-11-08] MEDS: Dextran 70/Hypromellose Tears Eye Drops 15 ml BTL (for Artificials Tears) BOTH EYES PRN (11:06)
[2021-11-08 11:58] LABS: Calcium 9.4 mg/dL (8.6-10.3)
[2021-11-08 11:59] LABS: Potassium 5.7 mmol/L (3.5-5.0)
[2021-11-08 12:03] LABS: eGFR CKD-EPI 52.9 (>60)
[2021-11-08 17:28] LABS: Calcium 9.5 mg/dL (8.6-10.3); eGFR CKD-EPI 53.5 (>60)
[2021-11-08 17:31] LABS: Potassium 5.3 mmol/L (3.5-5.0)
[2021-11-08] MEDS ORDERED: Furosemide 20 mg/2 ml IV VIAL IV SLOW PU ONE (18:20)
[2021-11-08] MEDS ORDERED: SODIUM ZIRCONIUM CYCLOSILICATE 10 GM PACKET PO ONE (18:24)
[2021-11-08] MEDS: Senna TAB 8.6 mg TAB PO SCH (22:53)
[2021-11-08 23:23] LABS: Calcium 9.3 mg/dL (8.6-10.3); eGFR CKD-EPI 57.5 (>60)
[2021-11-08 23:24] LABS: Potassium 5.1 mmol/L (3.5-5.0)
[2021-11-09] MEDS: ZOSYN 3.375 GM Q8H per EXTENDED INFUSION IV SCH ×3 (02:27→16:02)
[2021-11-09] MEDS: Chlorhexidine MOUTHWASH 0.12% 15 ML UDC TOPICAL SCH ×6 (02:27→21:31)
[2021-11-09 04:51] LABS: ABS Eosinophils 0.2 10^3/ul (0-0.6); ABS Lymphocytes 0.5 10^3/ul (1.0-4.8); ABS Monocytes 0.6 10^3/ul (0-0.8); ABS Neutrophils 13.7 10^3/ul (1.5-7.7); Hematocrit 30 % (35-47); Hemoglobin 9.6 g/dL (12.0-16.0); Lymphocyte % 3.6 %; Mean Corpuscular HGB Conc 32 g/dL (31-36); Mean Corpuscular Hemoglobin 26 pg (27-31); Mean Corpuscular Volume 81 fL (80-97); Mean Platelet Volume 7.6 fL (7.4-10.4); Platelet Count 287 10^3/uL (150-450); Red Blood Count 3.73 10^6 /uL (3.70-4.87); Red Cell Distribution Width 16 % (10-15)
[2021-11-09 05:07] LABS: Albumin/Globulin Ratio 0.9 (1-3); Calcium 9.4 mg/dL (8.6-10.3); Globulin 3.2 g/dL (2-4); Magnesium 2.7 mg/dL (1.9-2.7); Phosphorus 4.1 mg/dL (2.5-5.0); Total Bilirubin 0.5 mg/dL (0.2-1.0); Total Protein 6.2 g/dL (6.4-8.9); eGFR CKD-EPI 60.7 (>60)
[2021-11-09 05:08] LABS: Potassium 5.5 mmol/L (3.5-5.0)
[2021-11-09] MEDS: methylPREDNISolone SOD 40 mg/ml 1 ml VIAL IV SCH ×2 (07:18→09:32)
[2021-11-09] MEDS: Midazolam 50 MG VIAL IV DRIP 50 ML IV SCH ×2 (07:18→15:11)
[2021-11-09] MEDS: Lansoprazole SUSP ORALSYR 3 MG/ML PO SCH (07:18)
[2021-11-09] MEDS: Polyethylene Glycol 3350 17 GM PACKET PO SCH ×2 (07:18→08:25)
[2021-11-09] MEDS: Senna TAB 8.6 mg TAB PO SCH (07:19)
[2021-11-09] MEDS: Albuterol/Ipratropium NEB.SOL (2.5/0.5 MG) 3 ML NEB.SOLN INH PRN (07:46)
[2021-11-09] MEDS ORDERED: SODIUM ZIRCONIUM CYCLOSILICATE 10 GM PACKET PO ONE (08:09)
[2021-11-09 09:16] LABS: Myoglobin 122.6 ng/mL (14.3-65.8)
[2021-11-09] MEDS: Famotidine IV 10 MG/ML 2 ml VIAL (20 mg) IV SLOW PU SCH ×2 (09:33→21:31)
[2021-11-09] MEDS ORDERED: Furosemide 40 mg/4 ml IV VIAL IV ONE (09:36)
[2021-11-09] MEDS: Dextran 70/Hypromellose Tears Eye Drops 15 ml BTL (for Artificials Tears) BOTH EYES PRN (09:56)
[2021-11-10] MEDS: fentaNYL 100 mcg/2 ml 50 MCG/ML VIAL IV SLOW PU PRN ×2 (00:43→07:13)
[2021-11-10] MEDS: Midazolam 50 MG VIAL IV DRIP 50 ML IV SCH ×2 (01:40→08:56)
[2021-11-10] MEDS: ZOSYN 3.375 GM Q8H per EXTENDED INFUSION IV SCH ×2 (02:16→09:06)
[2021-11-10] MEDS: Chlorhexidine MOUTHWASH 0.12% 15 ML UDC TOPICAL SCH ×6 (02:30→21:11)
[2021-11-10 04:56] LABS: Hematocrit 31 % (35-47); Hemoglobin 9.7 g/dL (12.0-16.0); Mean Corpuscular HGB Conc 32 g/dL (31-36); Mean Corpuscular Hemoglobin 25 pg (27-31); Mean Corpuscular Volume 80 fL (80-97); Mean Platelet Volume 7.7 fL (7.4-10.4); Platelet Count 297 10^3/uL (150-450); Red Blood Count 3.81 10^6 /uL (3.70-4.87); Red Cell Distribution Width 16 % (10-15); White Blood Count 17.2 10^3/uL (3.5-10.8)
[2021-11-10 05:17] LABS: Calcium 9.5 mg/dL (8.6-10.3); Magnesium 2.4 mg/dL (1.9-2.7); Phosphorus 3.4 mg/dL (2.5-5.0); Potassium 4.5 mmol/L (3.5-5.0); eGFR CKD-EPI 68.2 (>60)
[2021-11-10 06:24] LABS: PCO2 Arterial 47 mmHg (35-45)
[2021-11-10 06:28] LABS: PO2 Arterial 58 mmHg (80-100)
[2021-11-10] MEDS: Insulin GLARGINE 100 un/ml 10 ml VIAL SUBCUT SCH (09:00)
[2021-11-10] MEDS: methylPREDNISolone SOD 40 mg/ml 1 ml VIAL IV SCH (09:00)
[2021-11-10] MEDS: Polyethylene Glycol 3350 17 GM PACKET PO SCH (09:01)
[2021-11-10] MEDS: Heparin 5000 UNITS/ML 1 mL VIAL SUBCUT SCH ×2 (09:01→19:24)
[2021-11-10] MEDS: Famotidine IV 10 MG/ML 2 ml VIAL (20 mg) IV SLOW PU SCH ×2 (09:01→19:24)
[2021-11-10] MEDS ORDERED: Furosemide 40 mg/4 ml IV VIAL IV SLOW PU ONE (09:09)
[2021-11-10] MEDS: Propofol 10 mg/ml 100 ML BTL 100 ML IV SCH ×3 (09:35→17:44)
[2021-11-10] MEDS: Dextran 70/Hypromellose Tears Eye Drops 15 ml BTL (for Artificials Tears) BOTH EYES PRN (13:26)
[2021-11-11] MEDS: Chlorhexidine MOUTHWASH 0.12% 15 ML UDC TOPICAL SCH ×6 (02:30→21:25)
[2021-11-11] MEDS: Propofol 10 mg/ml 100 ML BTL 100 ML IV SCH ×7 (05:12→21:53)
[2021-11-11 05:28] LABS: Hematocrit 31 % (35-47); Hemoglobin 9.8 g/dL (12.0-16.0); Mean Corpuscular HGB Conc 32 g/dL (31-36); Mean Corpuscular Hemoglobin 25 pg (27-31); Mean Corpuscular Volume 80 fL (80-97); Mean Platelet Volume 7.2 fL (7.4-10.4); Platelet Count 328 10^3/uL (150-450); Red Blood Count 3.87 10^6 /uL (3.70-4.87); Red Cell Distribution Width 17 % (10-15)
[2021-11-11 05:46] LABS: ABS Basophils 0.2 10^3/ul (0-0.2); ABS Eosinophils 0.2 10^3/ul (0-0.6); ABS Lymphocytes 1.4 10^3/ul (1.0-4.8); ABS Monocytes 0.8 10^3/ul (0-0.8); ABS Neutrophils 13.4 10^3/ul (1.5-7.7); Anisocytosis 1+; Eosinophil % 1.3 %; Lymphocyte % 8.6 %; Nucleated Red Blood Cells % 0.1
[2021-11-11 05:47] LABS: Calcium 9.2 mg/dL (8.6-10.3); Magnesium 2.2 mg/dL (1.9-2.7); Phosphorus 3.8 mg/dL (2.5-5.0); Potassium 4.5 mmol/L (3.5-5.0); eGFR CKD-EPI 60.7 (>60)
[2021-11-11 06:08] LABS: PCO2 Arterial 46 mmHg (35-45); PO2 Arterial 89 mmHg (80-100)
[2021-11-11] MEDS ORDERED: Furosemide 40 mg/4 ml IV VIAL IV SLOW PU ONE (06:39)
[2021-11-11] MEDS: fentaNYL 100 mcg/2 ml 50 MCG/ML VIAL IV SLOW PU PRN ×2 (07:05→13:15)
[2021-11-11] MEDS: Heparin 5000 UNITS/ML 1 mL VIAL SUBCUT SCH ×2 (08:24→21:28)
[2021-11-11] MEDS: Polyethylene Glycol 3350 17 GM PACKET PO SCH (08:25)
[2021-11-11] MEDS: methylPREDNISolone SOD 40 mg/ml 1 ml VIAL IV SCH (08:25)
[2021-11-11] MEDS: Famotidine IV 10 MG/ML 2 ml VIAL (20 mg) IV SLOW PU SCH ×2 (08:25→21:25)
[2021-11-11] MEDS: Insulin GLARGINE 100 un/ml 10 ml VIAL SUBCUT SCH (08:25)
[2021-11-11] MEDS: hydrALAZINE 20 mg/ml 1 ML Vial IV IV SLOW PU PRN (22:33)
[2021-11-12] MEDS: Propofol 10 mg/ml 100 ML BTL 100 ML IV SCH ×11 (01:47→23:57)
[2021-11-12] MEDS: Chlorhexidine MOUTHWASH 0.12% 15 ML UDC TOPICAL SCH ×6 (04:56→20:40)
[2021-11-12 05:06] LABS: ABS Eosinophils 0.2 10^3/ul (0-0.6); ABS Lymphocytes 1.4 10^3/ul (1.0-4.8); ABS Monocytes 0.8 10^3/ul (0-0.8); ABS Neutrophils 12.3 10^3/ul (1.5-7.7); Eosinophil % 1.6 %; Hematocrit 32 % (35-47); Hemoglobin 10.3 g/dL (12.0-16.0); Lymphocyte % 9.8 %; Mean Corpuscular HGB Conc 32 g/dL (31-36); Mean Corpuscular Hemoglobin 26 pg (27-31); Mean Corpuscular Volume 80 fL (80-97); Mean Platelet Volume 7.7 fL (7.4-10.4); Platelet Count 314 10^3/uL (150-450); Red Blood Count 3.98 10^6 /uL (3.70-4.87); Red Cell Distribution Width 17 % (10-15); White Blood Count 14.7 10^3/uL (3.5-10.8)
[2021-11-12 05:16] LABS: INR 1.04 (0.86-1.15)
[2021-11-12 05:21] LABS: Calcium 9.3 mg/dL (8.6-10.3); Magnesium 2.2 mg/dL (1.9-2.7); Phosphorus 4.1 mg/dL (2.5-5.0); Potassium 4.1 mmol/L (3.5-5.0); eGFR CKD-EPI 68.2 (>60)
[2021-11-12] MEDS: Saline FLUSH-CENTRAL 10 ML SYRINGE CENT\\PICC SCH ×2 (06:58→17:31)
[2021-11-12] MEDS ORDERED: Albuterol/Ipratropium NEB.SOL (2.5/0.5 MG) 3 ML NEB.SOLN INH PRN (08:08)
[2021-11-12] MEDS: Famotidine IV 10 MG/ML 2 ml VIAL (20 mg) IV SLOW PU SCH ×2 (09:14→20:41)
[2021-11-12] MEDS: Heparin 5000 UNITS/ML 1 mL VIAL SUBCUT SCH ×2 (09:15→20:43)
[2021-11-12] MEDS: Insulin GLARGINE 100 un/ml 10 ml VIAL SUBCUT SCH (09:15)
[2021-11-12] MEDS: Polyethylene Glycol 3350 17 GM PACKET PO SCH (09:16)
[2021-11-12] MEDS: methylPREDNISolone SOD 40 mg/ml 1 ml VIAL IV SCH (09:16)
[2021-11-12] MEDS: fentaNYL 100 mcg/2 ml 50 MCG/ML VIAL IV SLOW PU PRN ×2 (10:35→13:01)
[2021-11-12 12:35] LABS: PO2 Arterial 93 mmHg (80-100)
[2021-11-12 12:44] LABS: PCO2 Arterial > 121 mmHg (35-45)
[2021-11-12] MEDS: Albuterol/Ipratropium NEB.SOL (2.5/0.5 MG) 3 ML NEB.SOLN INH PRN (19:17)
[2021-11-12 19:42] LABS: PCO2 Arterial 71 mmHg (35-45); PO2 Arterial 83 mmHg (80-100)
[2021-11-12] MEDS ORDERED: Furosemide 40 mg/4 ml IV VIAL IV SLOW PU ONE (20:13)
[2021-11-12] MEDS: Budesonide NEB 0.5 MG/2 ML NEB.SOLN INH SCH (23:33)
[2021-11-13] MEDS: Propofol 10 mg/ml 100 ML BTL 100 ML IV SCH ×11 (01:11→21:22)
[2021-11-13] MEDS: Chlorhexidine MOUTHWASH 0.12% 15 ML UDC TOPICAL SCH ×6 (02:30→21:15)
[2021-11-13] MEDS: fentaNYL 100 mcg/2 ml 50 MCG/ML VIAL IV SLOW PU PRN ×2 (03:33→13:08)
[2021-11-13 05:16] LABS: PCO2 Arterial 56 mmHg (35-45); PO2 Arterial 65 mmHg (80-100)
[2021-11-13 05:21] LABS: Hematocrit 31 % (35-47); Hemoglobin 9.7 g/dL (12.0-16.0); Mean Corpuscular HGB Conc 32 g/dL (31-36); Mean Corpuscular Hemoglobin 25 pg (27-31); Mean Corpuscular Volume 80 fL (80-97); Mean Platelet Volume 7.9 fL (7.4-10.4); Platelet Count 305 10^3/uL (150-450); Red Blood Count 3.82 10^6 /uL (3.70-4.87); Red Cell Distribution Width 16 % (10-15); White Blood Count 15.2 10^3/uL (3.5-10.8)
[2021-11-13 05:24] LABS: ABS Basophils 0.1 10^3/ul (0-0.2); ABS Eosinophils 0.2 10^3/ul (0-0.6); ABS Lymphocytes 1.5 10^3/ul (1.0-4.8); ABS Monocytes 0.9 10^3/ul (0-0.8); ABS Neutrophils 12.5 10^3/ul (1.5-7.7); Eosinophil % 1.1 %; Lymphocyte % 10.1 %; Nucleated Red Blood Cells % 0.1
[2021-11-13 05:44] LABS: Calcium 9.1 mg/dL (8.6-10.3); Magnesium 2.4 mg/dL (1.9-2.7); Potassium 4.2 mmol/L (3.5-5.0); eGFR CKD-EPI 49.9 (>60)
[2021-11-13] MEDS: Saline FLUSH-CENTRAL 10 ML SYRINGE CENT\\PICC SCH ×2 (06:43→18:11)
[2021-11-13] MEDS: Insulin GLARGINE 100 un/ml 10 ml VIAL SUBCUT SCH (08:11)
[2021-11-13] MEDS: Famotidine IV 10 MG/ML 2 ml VIAL (20 mg) IV SLOW PU SCH ×2 (08:11→21:15)
[2021-11-13] MEDS: Polyethylene Glycol 3350 17 GM PACKET PO SCH (08:11)
[2021-11-13] MEDS: methylPREDNISolone SOD 40 mg/ml 1 ml VIAL IV SCH (08:11)
[2021-11-13] MEDS: Heparin 5000 UNITS/ML 1 mL VIAL SUBCUT SCH ×2 (08:11→21:16)
[2021-11-13] MEDS: Budesonide NEB 0.5 MG/2 ML NEB.SOLN INH SCH ×2 (08:25→19:22)
[2021-11-13] MEDS: Albuterol/Ipratropium NEB.SOL (2.5/0.5 MG) 3 ML NEB.SOLN INH PRN ×2 (08:26→19:22)
[2021-11-13] MEDS: hydrALAZINE 20 mg/ml 1 ML Vial IV IV SLOW PU PRN (15:11)
[2021-11-14] MEDS: Propofol 10 mg/ml 100 ML BTL 100 ML IV SCH ×6 (00:49→23:04)
[2021-11-14] MEDS: Chlorhexidine MOUTHWASH 0.12% 15 ML UDC TOPICAL SCH ×6 (00:49→21:10)
[2021-11-14] MEDS: fentaNYL 100 mcg/2 ml 50 MCG/ML VIAL IV SLOW PU PRN ×2 (03:24→11:38)
[2021-11-14 04:23] LABS: Hematocrit 32 % (35-47); Hemoglobin 10.2 g/dL (12.0-16.0); Mean Corpuscular HGB Conc 32 g/dL (31-36); Mean Corpuscular Hemoglobin 26 pg (27-31); Mean Corpuscular Volume 80 fL (80-97); Mean Platelet Volume 7.6 fL (7.4-10.4); Platelet Count 355 10^3/uL (150-450); Red Blood Count 3.97 10^6 /uL (3.70-4.87); Red Cell Distribution Width 17 % (10-15); White Blood Count 17.8 10^3/uL (3.5-10.8)
[2021-11-14 04:35] LABS: ABS Basophils 0.1 10^3/ul (0-0.2); ABS Eosinophils 0.1 10^3/ul (0-0.6); ABS Lymphocytes 1.8 10^3/ul (1.0-4.8); ABS Monocytes 1.4 10^3/ul (0-0.8); ABS Neutrophils 14.4 10^3/ul (1.5-7.7); Eosinophil % 0.8 %; Lymphocyte % 10.2 %
[2021-11-14 04:41] LABS: Calcium 9.2 mg/dL (8.6-10.3); Magnesium 2.5 mg/dL (1.9-2.7); Phosphorus 3.8 mg/dL (2.5-5.0); Potassium 4.2 mmol/L (3.5-5.0)
[2021-11-14] MEDS: hydrALAZINE 20 mg/ml 1 ML Vial IV IV SLOW PU PRN (05:58)
[2021-11-14] MEDS: Saline FLUSH-CENTRAL 10 ML SYRINGE CENT\\PICC SCH ×2 (07:33→16:01)
[2021-11-14] MEDS: Insulin GLARGINE 100 un/ml 10 ml VIAL SUBCUT SCH (07:51)
[2021-11-14] MEDS: Heparin 5000 UNITS/ML 1 mL VIAL SUBCUT SCH ×2 (07:51→21:10)
[2021-11-14] MEDS: Famotidine IV 10 MG/ML 2 ml VIAL (20 mg) IV SLOW PU SCH ×2 (07:51→21:10)
[2021-11-14] MEDS: Polyethylene Glycol 3350 17 GM PACKET PO SCH (07:51)
[2021-11-14] MEDS: Budesonide NEB 0.5 MG/2 ML NEB.SOLN INH SCH ×2 (07:55→19:22)
[2021-11-14 12:58] LABS: PCO2 Arterial 77 mmHg (35-45); PO2 Arterial 55 mmHg (80-100)
[2021-11-14] MEDS ORDERED: Rocuronium 50 mg VIAL 10 mg/ml 5 ml VIAL (50 mg) ONE (14:08)
[2021-11-14] MEDS ORDERED: Rocuronium 50 mg VIAL 10 mg/ml 5 ml VIAL (50 mg) IV ONE (14:35)
[2021-11-14 16:02] LABS: PO2 Arterial 78 mmHg (80-100)
[2021-11-14 16:13] LABS: PCO2 Arterial 106 mmHg (35-45)
[2021-11-14] MEDS: Dexmedetomidine 1,000 MCG in NS 0.9% 250 ml 240 ML IV SCH (17:45)
[2021-11-14 17:56] LABS: PO2 Arterial 65 mmHg (80-100)
[2021-11-14 17:59] LABS: PCO2 Arterial 85 mmHg (35-45)
[2021-11-14] MEDS ORDERED: Dexmedetomidine 1,000 MCG in NS 0.9% 250 ml 240 ML IV SCH (18:00)
[2021-11-14] MEDS ORDERED: Norepinephrine 16MCG/ML BAG NS 4,000 MCG/250 ML BAG IV ONE (19:45)
[2021-11-14 21:53] LABS: PCO2 Arterial 60 mmHg (35-45); PO2 Arterial 66 mmHg (80-100)
[2021-11-14] MEDS ORDERED: Propofol 10 MG/ML 20 ML BTL ONE (23:02)
[2021-11-15] MEDS: Chlorhexidine MOUTHWASH 0.12% 15 ML UDC TOPICAL SCH ×6 (00:17→20:43)
[2021-11-15] MEDS: fentaNYL 100 mcg/2 ml 50 MCG/ML VIAL IV SLOW PU PRN ×2 (01:22→11:13)
[2021-11-15] MEDS: Dexmedetomidine 1,000 MCG in NS 0.9% 250 ml 240 ML IV SCH ×2 (04:11→12:55)
[2021-11-15] MEDS: Dextran 70/Hypromellose Tears Eye Drops 15 ml BTL (for Artificials Tears) BOTH EYES PRN (04:47)
[2021-11-15 05:18] LABS: Hematocrit 31 % (35-47); Hemoglobin 9.7 g/dL (12.0-16.0); Mean Corpuscular HGB Conc 32 g/dL (31-36); Mean Corpuscular Hemoglobin 26 pg (27-31); Mean Corpuscular Volume 81 fL (80-97); Mean Platelet Volume 7.4 fL (7.4-10.4); Platelet Count 325 10^3/uL (150-450); Red Blood Count 3.78 10^6 /uL (3.70-4.87); Red Cell Distribution Width 17 % (10-15)
[2021-11-15 05:29] LABS: ABS Basophils 0.1 10^3/ul (0-0.2); ABS Eosinophils 0.3 10^3/ul (0-0.6); ABS Lymphocytes 1.5 10^3/ul (1.0-4.8); ABS Monocytes 1.2 10^3/ul (0-0.8); ABS Neutrophils 17.9 10^3/ul (1.5-7.7); Eosinophil % 1.5 %; Lymphocyte % 7.3 %
[2021-11-15 05:33] LABS: Magnesium 2.4 mg/dL (1.9-2.7); Phosphorus 3.6 mg/dL (2.5-5.0); Potassium 4.3 mmol/L (3.5-5.0); eGFR CKD-EPI 56.9 (>60)
[2021-11-15] MEDS: Saline FLUSH-CENTRAL 10 ML SYRINGE CENT\\PICC SCH ×2 (05:46→17:28)
[2021-11-15] MEDS: Propofol 10 mg/ml 100 ML BTL 100 ML IV SCH ×6 (06:30→23:06)
[2021-11-15] MEDS: Budesonide NEB 0.5 MG/2 ML NEB.SOLN INH SCH ×2 (07:36→19:27)
[2021-11-15] MEDS: Polyethylene Glycol 3350 17 GM PACKET PO SCH (09:22)
[2021-11-15] MEDS: Insulin GLARGINE 100 un/ml 10 ml VIAL SUBCUT SCH (09:22)
[2021-11-15] MEDS: Heparin 5000 UNITS/ML 1 mL VIAL SUBCUT SCH ×2 (09:23→20:43)
[2021-11-15] MEDS: Famotidine IV 10 MG/ML 2 ml VIAL (20 mg) IV SLOW PU SCH ×2 (09:23→20:44)
[2021-11-15] MEDS ORDERED: Acetylcysteine INHALATION SOL 200 MG/ML NEB.SOLN 10 ML ONE (11:35)
[2021-11-15] MEDS: Acetylcysteine INH SOL (RT) 200 MG/ML 4 ML VIAL INH SCH ×2 (11:41→11:42)
[2021-11-15] MEDS: Albuterol/Ipratropium NEB.SOL (2.5/0.5 MG) 3 ML NEB.SOLN INH PRN ×2 (11:43→12:30)
[2021-11-15] MEDS ORDERED: fentaNYL 100 mcg/2 ml 50 MCG/ML VIAL IV SLOW PU ONE (12:15)
[2021-11-15] MEDS ORDERED: fentaNYL 100 mcg/2 ml 50 MCG/ML VIAL ONE (12:28)
[2021-11-15] MEDS: Acetaminophen IV 1 GM/100ML VI 100 ML IV PRN (12:38)
[2021-11-15] MEDS ORDERED: Piperacillin/Tazobac ADVAN 3.375 GM in NS 0.9% 100 ml BAG 100 ML IV ONE (17:47)
[2021-11-15] MEDS ORDERED: Zosyn per Pharmacy NOTE FOLLOW UP SCH (18:00)
[2021-11-15] MEDS: Norepinephrine 16MCG/ML BAG NS 4,000 MCG/250 ML BAG IV SCH (19:09)
[2021-11-15] MEDS: ZOSYN 3.375 GM Q8H per EXTENDED INFUSION IV SCH (23:10)
[2021-11-16] MEDS: Propofol 10 mg/ml 100 ML BTL 100 ML IV SCH ×6 (01:33→21:32)
[2021-11-16] MEDS: Chlorhexidine MOUTHWASH 0.12% 15 ML UDC TOPICAL SCH ×6 (01:34→21:26)
[2021-11-16] MEDS: Dexmedetomidine 1,000 MCG in NS 0.9% 250 ml 240 ML IV SCH ×2 (02:07→15:16)
[2021-11-16] MEDS ORDERED: Furosemide 20 mg/2 ml IV VIAL ONE (04:18)
[2021-11-16] MEDS ORDERED: Furosemide 20 mg/2 ml IV VIAL IV ONE (04:20)
[2021-11-16 04:29] LABS: Hematocrit 29 % (35-47); Hemoglobin 9.3 g/dL (12.0-16.0); Mean Corpuscular HGB Conc 32 g/dL (31-36); Mean Corpuscular Hemoglobin 26 pg (27-31); Mean Corpuscular Volume 81 fL (80-97); Mean Platelet Volume 7.5 fL (7.4-10.4); Platelet Count 287 10^3/uL (150-450); Red Blood Count 3.56 10^6 /uL (3.70-4.87); Red Cell Distribution Width 17 % (10-15)
[2021-11-16 04:40] LABS: ABS Basophils 0.1 10^3/ul (0-0.2); ABS Eosinophils 0.4 10^3/ul (0-0.6); ABS Lymphocytes 1.4 10^3/ul (1.0-4.8); ABS Monocytes 0.8 10^3/ul (0-0.8); ABS Neutrophils 11.3 10^3/ul (1.5-7.7); Eosinophil % 2.9 %; Lymphocyte % 9.8 %
[2021-11-16] MEDS: fentaNYL 100 mcg/2 ml 50 MCG/ML VIAL IV SLOW PU PRN ×2 (04:41→23:55)
[2021-11-16 04:44] LABS: Calcium 9.3 mg/dL (8.6-10.3); eGFR CKD-EPI 75.5 (>60)
[2021-11-16] MEDS: Saline FLUSH-CENTRAL 10 ML SYRINGE CENT\\PICC SCH ×2 (05:56→17:35)
[2021-11-16] MEDS: ZOSYN 3.375 GM Q8H per EXTENDED INFUSION IV SCH ×3 (06:22→23:56)
[2021-11-16] MEDS: Albuterol/Ipratropium NEB.SOL (2.5/0.5 MG) 3 ML NEB.SOLN INH PRN ×5 (08:02→23:32)
[2021-11-16] MEDS: Heparin 5000 UNITS/ML 1 mL VIAL SUBCUT SCH ×2 (08:09→21:26)
[2021-11-16] MEDS: Insulin GLARGINE 100 un/ml 10 ml VIAL SUBCUT SCH (08:09)
[2021-11-16] MEDS: Famotidine IV 10 MG/ML 2 ml VIAL (20 mg) IV SLOW PU SCH ×2 (08:09→21:26)
[2021-11-16] MEDS: Polyethylene Glycol 3350 17 GM PACKET PO SCH (08:09)
[2021-11-16] MEDS: Budesonide NEB 0.5 MG/2 ML NEB.SOLN INH SCH ×2 (08:21→20:32)
[2021-11-16] MEDS: Acetaminophen IV 1 GM/100ML VI 100 ML IV PRN (10:58)
[2021-11-16] MEDS ORDERED: Furosemide 40 mg/4 ml IV VIAL IV SLOW PU ONE (15:33)
[2021-11-16] MEDS ORDERED: Albuterol/Ipratropium NEB.SOL (2.5/0.5 MG) 3 ML NEB.SOLN ONE (15:48)
[2021-11-16 16:04] LABS: PO2 Arterial 74 mmHg (80-100)
[2021-11-16 16:09] LABS: PCO2 Arterial 75 mmHg (35-45)
[2021-11-16 21:24] LABS: PCO2 Arterial 70 mmHg (35-45); PO2 Arterial 74 mmHg (80-100)
[2021-11-17] MEDS: Chlorhexidine MOUTHWASH 0.12% 15 ML UDC TOPICAL SCH ×6 (00:25→20:18)
[2021-11-17] MEDS: Propofol 10 mg/ml 100 ML BTL 100 ML IV SCH ×8 (00:25→22:45)
[2021-11-17] MEDS ORDERED: Dexmedetomidine 1,000 MCG in NS 0.9% 250 ml 240 ML IV SCH (03:00)
[2021-11-17] MEDS: fentaNYL 100 mcg/2 ml 50 MCG/ML VIAL IV SLOW PU PRN ×2 (03:22→13:29)
[2021-11-17] MEDS: Albuterol/Ipratropium NEB.SOL (2.5/0.5 MG) 3 ML NEB.SOLN INH PRN ×7 (03:36→23:23)
[2021-11-17 04:51] LABS: Hematocrit 29 % (35-47); Hemoglobin 9.2 g/dL (12.0-16.0); Mean Corpuscular HGB Conc 32 g/dL (31-36); Mean Corpuscular Hemoglobin 27 pg (27-31); Mean Corpuscular Volume 83 fL (80-97); Mean Platelet Volume 7.3 fL (7.4-10.4); Platelet Count 293 10^3/uL (150-450); Red Blood Count 3.46 10^6 /uL (3.70-4.87); Red Cell Distribution Width 17 % (10-15); White Blood Count 12.6 10^3/uL (3.5-10.8)
[2021-11-17 05:10] LABS: INR 1.12 (0.86-1.15)
[2021-11-17] MEDS: Norepinephrine 16MCG/ML BAG NS 4,000 MCG/250 ML BAG IV SCH (05:41)
[2021-11-17] MEDS: Budesonide NEB 0.5 MG/2 ML NEB.SOLN INH SCH ×2 (07:09→20:17)
[2021-11-17] MEDS: Saline FLUSH-CENTRAL 10 ML SYRINGE CENT\\PICC SCH ×2 (07:13→17:04)
[2021-11-17] MEDS: ZOSYN 3.375 GM Q8H per EXTENDED INFUSION IV SCH ×3 (07:25→23:29)
[2021-11-17] MEDS: Heparin 5000 UNITS/ML 1 mL VIAL SUBCUT SCH ×2 (08:03→20:18)
[2021-11-17] MEDS: Insulin GLARGINE 100 un/ml 10 ml VIAL SUBCUT SCH (08:03)
[2021-11-17] MEDS: Polyethylene Glycol 3350 17 GM PACKET PO SCH (08:03)
[2021-11-17] MEDS: Famotidine IV 10 MG/ML 2 ml VIAL (20 mg) IV SLOW PU SCH ×2 (08:03→20:18)
[2021-11-17] MEDS ORDERED: Propofol 10 MG/ML 20 ML BTL ONE (12:02)
[2021-11-17] MEDS ORDERED: Lidocaine 2% PF 5 ML VIAL ONE (12:02)
[2021-11-17] MEDS ORDERED: Rocuronium 50 mg VIAL 10 mg/ml 5 ml VIAL (50 mg) ONE (12:03)
[2021-11-17] MEDS ORDERED: fentaNYL 100 mcg/2 ml 50 MCG/ML VIAL ONE (12:04)
[2021-11-17 12:38] LABS: PO2 Arterial 86 mmHg (80-100)
[2021-11-17] MEDS ORDERED: Lidocaine 2% w/ EPI 1:200,000 MPF 20 ML SDV VIAL ONE (12:45)
[2021-11-17 12:46] LABS: PCO2 Arterial 112 mmHg (35-45)
[2021-11-17] MEDS ORDERED: Rocuronium 50 mg VIAL 10 mg/ml 5 ml VIAL (50 mg) IV ONE (14:02)
[2021-11-17] MEDS ORDERED: Propofol 10 mg/ml 100 ML BTL 100 ML ONE (14:13)
[2021-11-17 14:38] LABS: PO2 Arterial 66 mmHg (80-100)
[2021-11-17 14:59] LABS: PCO2 Arterial > 121 mmHg (35-45)
[2021-11-17] MEDS: Acetaminophen IV 1 GM/100ML VI 100 ML IV PRN (15:15)
[2021-11-17] MEDS ORDERED: NS 0.9% 1000 ml BAG 250 ML IV ONE (15:28)
[2021-11-17 15:44] LABS: PO2 Arterial 97 mmHg (80-100)
[2021-11-17 15:49] LABS: PCO2 Arterial 118 mmHg (35-45)
[2021-11-18] MEDS: Chlorhexidine MOUTHWASH 0.12% 15 ML UDC TOPICAL SCH ×6 (00:50→20:23)
[2021-11-18] MEDS: Propofol 10 mg/ml 100 ML BTL 100 ML IV SCH ×6 (03:08→23:03)
[2021-11-18] MEDS: Saline FLUSH-CENTRAL 10 ML SYRINGE CENT\\PICC SCH ×2 (05:06→18:52)
[2021-11-18 05:15] LABS: Hematocrit 29 % (35-47); Hemoglobin 9.1 g/dL (12.0-16.0); Mean Corpuscular HGB Conc 31 g/dL (31-36); Mean Corpuscular Hemoglobin 26 pg (27-31); Mean Corpuscular Volume 83 fL (80-97); Mean Platelet Volume 6.9 fL (7.4-10.4); Platelet Count 285 10^3/uL (150-450); Red Blood Count 3.49 10^6 /uL (3.70-4.87); Red Cell Distribution Width 18 % (10-15); White Blood Count 11.8 10^3/uL (3.5-10.8)
[2021-11-18 05:34] LABS: Albumin 2.9 g/dL (3.2-5.2); Albumin/Globulin Ratio 0.9 (1-3); Calcium 9.4 mg/dL (8.6-10.3); Globulin 3.3 g/dL (2-4); Magnesium 2.6 mg/dL (1.9-2.7); Phosphorus 5.7 mg/dL (2.5-5.0); Potassium 4.8 mmol/L (3.5-5.0); Total Bilirubin 0.6 mg/dL (0.2-1.0); Total Protein 6.2 g/dL (6.4-8.9); eGFR CKD-EPI 43.7 (>60)
[2021-11-18 05:37] LABS: Anisocytosis 1+; Basophilic Stippling 1+; Polychromasia 1+
[2021-11-18 05:38] LABS: ABS Basophils 0.1 10^3/ul (0-0.2); ABS Eosinophils 0.3 10^3/ul (0-0.6); ABS Lymphocytes 1.3 10^3/ul (1.0-4.8); ABS Monocytes 0.9 10^3/ul (0-0.8); ABS Neutrophils 9.2 10^3/ul (1.5-7.7); Eosinophil % 2.6 %; Nucleated Red Blood Cells % 0.1
[2021-11-18] MEDS: Albuterol/Ipratropium NEB.SOL (2.5/0.5 MG) 3 ML NEB.SOLN INH PRN ×3 (07:03→14:39)
[2021-11-18] MEDS: Budesonide NEB 0.5 MG/2 ML NEB.SOLN INH SCH ×2 (07:04→19:22)
[2021-11-18] MEDS: ZOSYN 3.375 GM Q8H per EXTENDED INFUSION IV SCH ×3 (07:45→22:15)
[2021-11-18] MEDS: Insulin GLARGINE 100 un/ml 10 ml VIAL SUBCUT SCH (07:49)
[2021-11-18] MEDS: Heparin 5000 UNITS/ML 1 mL VIAL SUBCUT SCH ×4 (07:50→22:15)
[2021-11-18] MEDS: Famotidine IV 10 MG/ML 2 ml VIAL (20 mg) IV SLOW PU SCH ×2 (07:50→20:23)
[2021-11-18] MEDS: Polyethylene Glycol 3350 17 GM PACKET PO SCH (08:15)
[2021-11-18 10:43] LABS: PO2 Arterial 122 mmHg (80-100)
[2021-11-18 10:47] LABS: PCO2 Arterial 88 mmHg (35-45)
[2021-11-18] MEDS: fentaNYL 100 mcg/2 ml 50 MCG/ML VIAL IV SLOW PU PRN ×2 (13:22→13:24)
[2021-11-18] MEDS: Dexmedetomidine 1,000 MCG in NS 0.9% 250 ml 240 ML IV SCH (14:02)
[2021-11-18] MEDS: Norepinephrine 16MCG/ML BAG NS 4,000 MCG/250 ML BAG IV SCH (22:20)
[2021-11-19] MEDS: Chlorhexidine MOUTHWASH 0.12% 15 ML UDC TOPICAL SCH ×6 (00:36→23:16)
[2021-11-19] MEDS: fentaNYL 100 mcg/2 ml 50 MCG/ML VIAL IV SLOW PU PRN ×2 (00:49→06:02)
[2021-11-19] MEDS: Propofol 10 mg/ml 100 ML BTL 100 ML IV SCH ×9 (02:00→23:45)
[2021-11-19] MEDS: Dexmedetomidine 1,000 MCG in NS 0.9% 250 ml 240 ML IV SCH ×2 (02:26→13:30)
[2021-11-19 05:49] LABS: Hematocrit 31 % (35-47); Hemoglobin 9.5 g/dL (12.0-16.0); Mean Corpuscular HGB Conc 31 g/dL (31-36); Mean Corpuscular Hemoglobin 26 pg (27-31); Mean Corpuscular Volume 86 fL (80-97); Mean Platelet Volume 6.7 fL (7.4-10.4); Platelet Count 351 10^3/uL (150-450); Red Blood Count 3.62 10^6 /uL (3.70-4.87); Red Cell Distribution Width 17 % (10-15); White Blood Count 13.6 10^3/uL (3.5-10.8)
[2021-11-19] MEDS: Heparin 5000 UNITS/ML 1 mL VIAL SUBCUT SCH ×3 (05:50→23:17)
[2021-11-19 05:51] LABS: ABS Basophils 0.1 10^3/ul (0-0.2); ABS Eosinophils 0.3 10^3/ul (0-0.6); ABS Monocytes 1.4 10^3/ul (0-0.8); ABS Neutrophils 10.9 10^3/ul (1.5-7.7); Eosinophil % 2.4 %; Lymphocyte % 7.2 %; Nucleated Red Blood Cells % 0.2
[2021-11-19] MEDS: Albumin Human 5% 12.5 GM/250 ML BTL IV SCH ×2 (05:52→06:38)
[2021-11-19] MEDS: Saline FLUSH-CENTRAL 10 ML SYRINGE CENT\\PICC SCH ×2 (06:13→18:07)
[2021-11-19] MEDS: ZOSYN 3.375 GM Q8H per EXTENDED INFUSION IV SCH ×3 (07:20→23:49)
[2021-11-19] MEDS: Budesonide NEB 0.5 MG/2 ML NEB.SOLN INH SCH ×2 (08:20→19:23)
[2021-11-19] MEDS: Albuterol/Ipratropium NEB.SOL (2.5/0.5 MG) 3 ML NEB.SOLN INH PRN ×2 (08:20→10:31)
[2021-11-19] MEDS: Norepinephrine 16MCG/ML BAG NS 4,000 MCG/250 ML BAG IV SCH (08:57)
[2021-11-19] MEDS: Famotidine IV 10 MG/ML 2 ml VIAL (20 mg) IV SLOW PU SCH ×2 (09:13→23:16)
[2021-11-19] MEDS: Insulin GLARGINE 100 un/ml 10 ml VIAL SUBCUT SCH (09:13)
[2021-11-19] MEDS: Polyethylene Glycol 3350 17 GM PACKET PO SCH (09:13)
[2021-11-19 09:27] LABS: Calcium 9.3 mg/dL (8.6-10.3); eGFR CKD-EPI 25.4 (>60)
[2021-11-19 09:44] LABS: Potassium 7.2 mmol/L (3.5-5.0)
[2021-11-19] MEDS ORDERED: Dextrose 50% Syringe 50 ml 25 GM/50 ML SYRINGE IV PUSH ONE (11:04)
[2021-11-19] MEDS ORDERED: Patiromer POWDER 8.4 GM PAK PO ONE ×2 (11:05→18:30)
[2021-11-19 11:31] LABS: Magnesium 3.1 mg/dL (1.9-2.7)
[2021-11-19 16:27] LABS: PCO2 Arterial 56 mmHg (35-45); PO2 Arterial 76 mmHg (80-100)
[2021-11-19 17:40] LABS: eGFR CKD-EPI 22.4 (>60)
[2021-11-19 17:41] LABS: Potassium 5.5 mmol/L (3.5-5.0)
[2021-11-19] MEDS: Albuterol/Ipratropium NEB.SOL (2.5/0.5 MG) 3 ML NEB.SOLN INH SCH ×2 (19:23→22:44)
[2021-11-19 23:48] LABS: Urine Appearance Turbid; Urine Bilirubin Negative (Negative); Urine Blood 2+ (Negative); Urine Color Amber; Urine Glucose Negative (Negative); Urine Ketones Negative (Negative); Urine Nitrite Negative (Negative); Urine Protein 2+(100 mg/dL) (Negative); Urine Specific Gravity 1.026 (1.002-1.030); Urine Urobilinogen Negative (Negative)
[2021-11-19 23:58] LABS: Urine Bacteria Absent (Absent); Urine Red Blood Cell 3+(>10/hpf) (Absent); Urine White Blood Cell Absent (Absent)
[2021-11-20] MEDS: Propofol 10 mg/ml 100 ML BTL 100 ML IV SCH ×7 (01:31→22:54)
[2021-11-20] MEDS: Chlorhexidine MOUTHWASH 0.12% 15 ML UDC TOPICAL SCH ×6 (02:36→22:37)
[2021-11-20] MEDS: Albuterol/Ipratropium NEB.SOL (2.5/0.5 MG) 3 ML NEB.SOLN INH SCH ×4 (02:46→19:19)
[2021-11-20 04:51] LABS: Hematocrit 22 % (35-47); Hemoglobin 7.2 g/dL (12.0-16.0); Mean Corpuscular HGB Conc 33 g/dL (31-36); Mean Corpuscular Hemoglobin 27 pg (27-31); Mean Corpuscular Volume 81 fL (80-97); Mean Platelet Volume 6.7 fL (7.4-10.4); Platelet Count 175 10^3/uL (150-450); Red Cell Distribution Width 18 % (10-15); White Blood Count 7.8 10^3/uL (3.5-10.8)
[2021-11-20 05:07] LABS: Calcium 8.8 mg/dL (8.6-10.3); Magnesium 2.7 mg/dL (1.9-2.7); Phosphorus 3.9 mg/dL (2.5-5.0); Potassium 4.7 mmol/L (3.5-5.0); eGFR CKD-EPI 16.7 (>60)
[2021-11-20] MEDS: Heparin 5000 UNITS/ML 1 mL VIAL SUBCUT SCH ×2 (06:11→17:26)
[2021-11-20] MEDS: Saline FLUSH-CENTRAL 10 ML SYRINGE CENT\\PICC SCH ×2 (06:13→18:54)
[2021-11-20] MEDS: Budesonide NEB 0.5 MG/2 ML NEB.SOLN INH SCH ×2 (07:07→19:19)
[2021-11-20] MEDS: Insulin GLARGINE 100 un/ml 10 ml VIAL SUBCUT SCH (08:46)
[2021-11-20] MEDS: ZOSYN 3.375 GM Q8H per EXTENDED INFUSION IV SCH ×3 (08:47→22:55)
[2021-11-20] MEDS: Famotidine IV 10 MG/ML 2 ml VIAL (20 mg) IV SLOW PU SCH ×2 (08:47→20:23)
[2021-11-20] MEDS: Dexmedetomidine 1,000 MCG in NS 0.9% 250 ml 240 ML IV SCH (09:03)
[2021-11-20 09:23] LABS: Hematocrit 22 % (35-47); Mean Corpuscular HGB Conc 33 g/dL (31-36); Mean Corpuscular Hemoglobin 27 pg (27-31); Mean Corpuscular Volume 81 fL (80-97); Mean Platelet Volume 6.7 fL (7.4-10.4); Platelet Count 172 10^3/uL (150-450); Red Blood Count 2.65 10^6 /uL (3.70-4.87); Red Cell Distribution Width 18 % (10-15); White Blood Count 8.1 10^3/uL (3.5-10.8)
[2021-11-20 09:32] LABS: INR 1.09 (0.86-1.15)
[2021-11-20 09:41] LABS: Calcium 8.8 mg/dL (8.6-10.3); Potassium 4.5 mmol/L (3.5-5.0); eGFR CKD-EPI 15.9 (>60)
[2021-11-20] MEDS: Polyethylene Glycol 3350 17 GM PACKET PO SCH (10:29)
[2021-11-20 13:52] LABS: Hepatitis B Surface Antigen Nonreactive (Nonreactive)
[2021-11-20] MEDS ORDERED: Heparin *DIALYSIS* ONLY 1,000 UNITS/ML VIAL DIALYSIS SCH (14:00)
[2021-11-20 14:09] LABS: Hepatitis B Surface Ab Not Immune (Immune)
[2021-11-20] MEDS: Heparin 1,000 UNIT/ML 10 ml (10,000 UNITS) CATHLAB/DIALYSIS DIALYSIS ONE ×2 (14:30→16:59)
[2021-11-20] MEDS ORDERED: Metoprolol Tartrate 5 mg VIAL 5 ml VIAL (1 mg/ml) IV PRN (16:18)
[2021-11-20 21:12] LABS: Urine Creatinine Concentration 50.88 mg/dL
[2021-11-21] MEDS: Albuterol/Ipratropium NEB.SOL (2.5/0.5 MG) 3 ML NEB.SOLN INH SCH ×4 (00:37→20:18)
[2021-11-21] MEDS: Chlorhexidine MOUTHWASH 0.12% 15 ML UDC TOPICAL SCH ×4 (01:42→14:43)
[2021-11-21] MEDS: Propofol 10 mg/ml 100 ML BTL 100 ML IV SCH ×3 (01:42→06:19)
[2021-11-21] MEDS: Dexmedetomidine 1,000 MCG in NS 0.9% 250 ml 240 ML IV SCH (02:08)
[2021-11-21 05:39] LABS: Hematocrit 23 % (35-47); Hemoglobin 7.7 g/dL (12.0-16.0); Mean Corpuscular HGB Conc 33 g/dL (31-36); Mean Corpuscular Hemoglobin 27 pg (27-31); Mean Corpuscular Volume 81 fL (80-97); Mean Platelet Volume 6.4 fL (7.4-10.4); PCO2 Arterial 47 mmHg (35-45); PO2 Arterial 101 mmHg (80-100); Platelet Count 172 10^3/uL (150-450); Red Blood Count 2.89 10^6 /uL (3.70-4.87); Red Cell Distribution Width 18 % (10-15)
[2021-11-21 05:40] LABS: ABS Basophils 0.1 10^3/ul (0-0.2); ABS Eosinophils 0.8 10^3/ul (0-0.6); ABS Lymphocytes 1.1 10^3/ul (1.0-4.8); ABS Monocytes 0.4 10^3/ul (0-0.8); ABS Neutrophils 5.7 10^3/ul (1.5-7.7); Lymphocyte % 13.6 %; Nucleated Red Blood Cells % 0.1
[2021-11-21 05:44] LABS: INR 1.03 (0.86-1.15)
[2021-11-21 05:55] LABS: Calcium 8.5 mg/dL (8.6-10.3); Magnesium 2.7 mg/dL (1.9-2.7); Phosphorus 4.3 mg/dL (2.5-5.0); Potassium 4.1 mmol/L (3.5-5.0); eGFR CKD-EPI 16.1 (>60)
[2021-11-21] MEDS: Saline FLUSH-CENTRAL 10 ML SYRINGE CENT\\PICC SCH ×2 (06:16→17:51)
[2021-11-21] MEDS: ZOSYN 3.375 GM Q8H per EXTENDED INFUSION IV SCH ×3 (07:19→21:54)
[2021-11-21] MEDS: Budesonide NEB 0.5 MG/2 ML NEB.SOLN INH SCH ×2 (07:51→20:18)
[2021-11-21] MEDS: Polyethylene Glycol 3350 17 GM PACKET PO SCH (08:00)
[2021-11-21] MEDS: Insulin GLARGINE 100 un/ml 10 ml VIAL SUBCUT SCH (08:03)
[2021-11-21] MEDS: Famotidine IV 10 MG/ML 2 ml VIAL (20 mg) IV SLOW PU SCH ×2 (08:04→20:13)
[2021-11-21] MEDS ORDERED: Rocuronium 50 mg VIAL 10 mg/ml 5 ml VIAL (50 mg) ONE (09:49)
[2021-11-21] MEDS ORDERED: Propofol 10 MG/ML 20 ML BTL ONE ×2 (09:49→11:04)
[2021-11-21] MEDS ORDERED: Cisatracurium 2 MG/ML MDV 5 ML ONE (09:53)
[2021-11-21] MEDS ORDERED: Lidocaine 2% w/ EPI 1:200,000 MPF 20 ML SDV VIAL ONE (10:35)
[2021-11-21] MEDS ORDERED: Phenylephrine 40 mcg/mL 10mL (400mcg) SYRINGE ONE (10:36)
[2021-11-21] MEDS ORDERED: Heparin 1,000 UNIT/ML 10 ml (10,000 UNITS) CATHLAB/DIALYSIS DIALYSIS ONE (12:00)
[2021-11-21] MEDS ORDERED: Lactated Ringers 1000 ml BAG 1,000 ML IV SCH (12:05)
[2021-11-21] MEDS: Heparin 5000 UNITS/ML 1 mL VIAL SUBCUT SCH ×2 (15:19→20:13)
[2021-11-21 19:04] VITALS: BP 169/61
[2021-11-21] MEDS: fentaNYL 100 mcg/2 ml 50 MCG/ML VIAL IV SLOW PU PRN (22:40)
[2021-11-22] MEDS: Albuterol/Ipratropium NEB.SOL (2.5/0.5 MG) 3 ML NEB.SOLN INH SCH ×4 (02:11→18:54)
[2021-11-22] MEDS: Dexmedetomidine 1,000 MCG in NS 0.9% 250 ml 240 ML IV SCH (02:54)
[2021-11-22] MEDS: fentaNYL 100 mcg/2 ml 50 MCG/ML VIAL IV SLOW PU PRN (04:00)
[2021-11-22] MEDS: Heparin 5000 UNITS/ML 1 mL VIAL SUBCUT SCH ×4 (04:23→23:45)
[2021-11-22] MEDS: Saline FLUSH-CENTRAL 10 ML SYRINGE CENT\\PICC SCH ×2 (04:25→17:47)
[2021-11-22 04:27] LABS: Hematocrit 23 % (35-47); Hemoglobin 7.4 g/dL (12.0-16.0); Mean Corpuscular HGB Conc 33 g/dL (31-36); Mean Corpuscular Hemoglobin 27 pg (27-31); Mean Corpuscular Volume 81 fL (80-97); Mean Platelet Volume 6.2 fL (7.4-10.4); Platelet Count 154 10^3/uL (150-450); Red Cell Distribution Width 19 % (10-15); White Blood Count 8.7 10^3/uL (3.5-10.8)
[2021-11-22 04:29] LABS: ABS Basophils 0.1 10^3/ul (0-0.2); ABS Eosinophils 0.5 10^3/ul (0-0.6); ABS Lymphocytes 1.1 10^3/ul (1.0-4.8); ABS Monocytes 0.4 10^3/ul (0-0.8); ABS Neutrophils 6.6 10^3/ul (1.5-7.7); Eosinophil % 5.7 %; Lymphocyte % 12.2 %; Nucleated Red Blood Cells % 0.1
[2021-11-22 04:44] LABS: Calcium 7.9 mg/dL (8.6-10.3); Magnesium 2.3 mg/dL (1.9-2.7); Phosphorus 3.3 mg/dL (2.5-5.0); Potassium 3.4 mmol/L (3.5-5.0); eGFR CKD-EPI 22.7 (>60)
[2021-11-22] MEDS: ZOSYN 3.375 GM Q8H per EXTENDED INFUSION IV SCH ×2 (06:00→17:11)
[2021-11-22] MEDS: Budesonide NEB 0.5 MG/2 ML NEB.SOLN INH SCH ×2 (07:30→18:54)
[2021-11-22] MEDS ORDERED: Potassium Chloride LIQUID 20 MEQ/15 ML LIQUID PO ONE (08:10)
[2021-11-22 08:32] LABS: PCO2 Arterial 39 mmHg (35-45); PO2 Arterial 68 mmHg (80-100)
[2021-11-22] MEDS: Famotidine IV 10 MG/ML 2 ml VIAL (20 mg) IV SLOW PU SCH ×2 (09:54→19:24)
[2021-11-22] MEDS: Insulin GLARGINE 100 un/ml 10 ml VIAL SUBCUT SCH (09:54)
[2021-11-22] MEDS: Polyethylene Glycol 3350 17 GM PACKET PO SCH (09:55)
[2021-11-22] MEDS: Acetaminophen IV 1 GM/100ML VI 100 ML IV PRN ×2 (11:56→22:33)
[2021-11-22] MEDS ORDERED: ZOSYN 3.375 GM Q8H per EXTENDED INFUSION IV SCH (17:00)
[2021-11-22] MEDS: hydrALAZINE 20 mg/ml 1 ML Vial IV IV SLOW PU PRN (17:57)
[2021-11-23] MEDS: Albuterol/Ipratropium NEB.SOL (2.5/0.5 MG) 3 ML NEB.SOLN INH SCH ×4 (01:50→19:46)
[2021-11-23] MEDS: hydrALAZINE 20 mg/ml 1 ML Vial IV IV SLOW PU PRN (02:39)
[2021-11-23] MEDS ORDERED: hydrALAZINE 20 mg/ml 1 ML Vial IV IV SLOW PU PRN (03:26)
[2021-11-23] MEDS ORDERED: fentaNYL 100 mcg/2 ml 50 MCG/ML VIAL IV SLOW PU ONE (03:26)
[2021-11-23 04:05] LABS: Hematocrit 24 % (35-47); Hemoglobin 7.6 g/dL (12.0-16.0); Mean Corpuscular HGB Conc 32 g/dL (31-36); Mean Corpuscular Hemoglobin 27 pg (27-31); Mean Corpuscular Volume 82 fL (80-97); Mean Platelet Volume 6.5 fL (7.4-10.4); Platelet Count 154 10^3/uL (150-450); Red Blood Count 2.87 10^6 /uL (3.70-4.87); Red Cell Distribution Width 19 % (10-15); White Blood Count 11.1 10^3/uL (3.5-10.8)
[2021-11-23 04:23] LABS: Calcium 8.5 mg/dL (8.6-10.3); Magnesium 2.5 mg/dL (1.9-2.7); Phosphorus 3.4 mg/dL (2.5-5.0); Potassium 3.6 mmol/L (3.5-5.0); eGFR CKD-EPI 16.9 (>60)
[2021-11-23 04:31] LABS: ABS Basophils 0.1 10^3/ul (0-0.2); ABS Eosinophils 0.7 10^3/ul (0-0.6); ABS Lymphocytes 1.2 10^3/ul (1.0-4.8); ABS Monocytes 0.6 10^3/ul (0-0.8); ABS Neutrophils 8.5 10^3/ul (1.5-7.7); Anisocytosis 1+; Eosinophil % 5.9 %; Lymphocyte % 11.3 %; Nucleated Red Blood Cells % 0.1
[2021-11-23 04:32] LABS: Basophilic Stippling 1+; Polychromasia 1+
[2021-11-23] MEDS: Saline FLUSH-CENTRAL 10 ML SYRINGE CENT\\PICC SCH ×2 (05:24→17:51)
[2021-11-23] MEDS: Acetaminophen IV 1 GM/100ML VI 100 ML IV PRN (06:30)
[2021-11-23] MEDS: Budesonide NEB 0.5 MG/2 ML NEB.SOLN INH SCH ×2 (07:04→19:46)
[2021-11-23] MEDS ORDERED: Potassium Chloride LIQUID 20 MEQ/15 ML LIQUID PO ONE (07:13)
[2021-11-23] MEDS: Insulin GLARGINE 100 un/ml 10 ml VIAL SUBCUT SCH (08:15)
[2021-11-23] MEDS: Famotidine IV 10 MG/ML 2 ml VIAL (20 mg) IV SLOW PU SCH ×2 (08:15→19:48)
[2021-11-23] MEDS: Polyethylene Glycol 3350 17 GM PACKET PO SCH (08:15)
[2021-11-23] MEDS: Heparin 5000 UNITS/ML 1 mL VIAL SUBCUT SCH (08:15)
[2021-11-23] MEDS ORDERED: Norepinephrine 16MCG/ML BAG NS 0 MCG/0 ML BAG IV ONE (10:16)
[2021-11-23] MEDS: Norepinephrine 16MCG/ML BAG NS 4,000 MCG/250 ML BAG IV SCH ×3 (10:19→13:39)
[2021-11-23] MEDS: PHENYLEPHRINE DRIP IVPREMIX 50 MG/250 ML BAG IV SCH ×2 (10:21→19:37)
[2021-11-23] MEDS ORDERED: Furosemide 100 mg/10 ml IV VIAL ONE (10:30)
[2021-11-23] MEDS ORDERED: Furosemide 40 mg/4 ml IV VIAL IV SLOW PU ONE (10:30)
[2021-11-23] MEDS ORDERED: Heparin DRIP 25,000 UNITS BAG 25,000 UNITS/500 ML BAG ONE (10:42)
[2021-11-23] MEDS: Albuterol/Ipratropium NEB.SOL (2.5/0.5 MG) 3 ML NEB.SOLN INH PRN (10:43)
[2021-11-23] MEDS ORDERED: Heparin DRIP 25,000 UNITS BAG 25,000 UNITS/500 ML BAG IV SCH (10:45)
[2021-11-23] MEDS ORDERED: Heparin 5000 UNITS/ML 1 mL VIAL ONE (10:47)
[2021-11-23] MEDS ORDERED: Heparin 5000 UNITS/ML 1 mL VIAL IV SCH (11:00)
[2021-11-23] MEDS ORDERED: Heparin 1,000 UNIT/ML 10 ml (10,000 UNITS) CATHLAB/DIALYSIS DIALYSIS SCH (14:00)
[2021-11-23] MEDS: Vasopressin 100 UNITS in D5W 250 ml BAG 245 ML IV SCH ×2 (14:20→22:18)
[2021-11-23] MEDS ORDERED: Norepinephrine *QUAD STRENGTH* 16 mg/250 mL NS per protocol IV SCH (15:00)
[2021-11-23] MEDS ORDERED: Norepinephrine 16MCG/ML BAG NS 4,000 MCG/250 ML BAG IV ONE (15:23)
[2021-11-23] MEDS ORDERED: MANNITOL IV ONE (16:00)
[2021-11-23] MEDS: Norepinephrine IV 16 MG in NS 0.9% 250 ml 234 ML IV SCH (22:02)
[2021-11-24] MEDS: Acetaminophen IV 1 GM/100ML VI 100 ML IV PRN
[2021-11-24] MEDS: Albuterol/Ipratropium NEB.SOL (2.5/0.5 MG) 3 ML NEB.SOLN INH SCH ×3 (01:25→14:23)
[2021-11-24] MEDS: PHENYLEPHRINE DRIP IVPREMIX 50 MG/250 ML BAG IV SCH ×3 (02:23→10:11)
[2021-11-24] MEDS: Norepinephrine IV 16 MG in NS 0.9% 250 ml 234 ML IV SCH ×3 (03:52→15:22)
[2021-11-24] MEDS: Saline FLUSH-CENTRAL 10 ML SYRINGE CENT\\PICC SCH (04:22)
[2021-11-24 04:29] LABS: Hematocrit 27 % (35-47); Mean Corpuscular HGB Conc 30 g/dL (31-36); Mean Corpuscular Hemoglobin 26 pg (27-31); Mean Corpuscular Volume 87 fL (80-97); Platelet Count 208 10^3/uL (150-450); Red Blood Count 3.04 10^6 /uL (3.70-4.87); Red Cell Distribution Width 20 % (10-15); White Blood Count 22.6 10^3/uL (3.5-10.8)
[2021-11-24 04:48] LABS: Magnesium 2.5 mg/dL (1.9-2.7); Phosphorus 6.5 mg/dL (2.5-5.0); Potassium 4.9 mmol/L (3.5-5.0); eGFR CKD-EPI 14.2 (>60)
[2021-11-24 06:18] LABS: ABS Basophils 0.1 10^3/ul (0-0.2); ABS Eosinophils 2.1 10^3/ul (0-0.6); ABS Lymphocytes 4.7 10^3/ul (1.0-4.8); ABS Monocytes 1.5 10^3/ul (0-0.8); ABS Neutrophils 14.2 10^3/ul (1.5-7.7); ABS Nucleated RBC 0.8 10^3/ul; Eosinophil % 9.2 %; Lymphocyte % 20.8 %; Nucleated Red Blood Cells % 3.7
[2021-11-24 06:29] LABS: Anisocytosis 1+
[2021-11-24] MEDS: Insulin GLARGINE 100 un/ml 10 ml VIAL SUBCUT SCH (07:39)
[2021-11-24] MEDS: Polyethylene Glycol 3350 17 GM PACKET PO SCH (07:39)
[2021-11-24] MEDS: Famotidine IV 10 MG/ML 2 ml VIAL (20 mg) IV SLOW PU SCH (07:39)
[2021-11-24] MEDS: Budesonide NEB 0.5 MG/2 ML NEB.SOLN INH SCH (08:45)
[2021-11-24] MEDS ORDERED: Lorazepam PYXIS KEY PRN (16:48)
[2021-11-24] MEDS ORDERED: LORazepam 2 mg VIAL 1 ml IV PUSH ONE (16:48)
[2021-11-24] MEDS ORDERED: Morphine 10 MG/ML VIAL (1 ml) IV ONE (16:48)
[2021-11-24] MEDS ORDERED: Morphine 10 MG/ML VIAL (1 ml) ONE (16:51)
[2021-11-24] MEDS ORDERED: Lorazepam PYXIS KEY ONE (16:51)
[2021-11-24] MEDS ORDERED: LORazepam 2 mg VIAL 1 ml ONE (16:52)
== END 2021-11-24 18:28 | disposition expired | DRG 4 ==
LOC: MED 12:46 → ED 12:46 → OBSVTOIN 15:22 → INTOOBSV 15:22 → SUATTDRO 10-26 16:00 → ICU 10-27 06:53
PROVIDERS: ADMIT Nurse Practitioner Adult Health; ATTEND Internal Medicine Critical Care Medicine